=== PATIENT | female | born 1990 | race Caucasian/White ===

== ENCOUNTER 2017-02-28 09:01 | Emergency (ER) | payer OTHER ==
[~2017-02-28] VITALS: Ht 182.9 cm; Wt 100.0 kg
[2017-02-28 09:02] VITALS: BP 134/80
[2017-02-28] MEDS ORDERED: PERCOCET 5MG/325MG TAB PO ONE (09:45)
[2017-02-28] MEDS ORDERED: BACLOFEN 10 MG TAB PO ONE (09:45)
[2017-02-28] MEDS ORDERED: BACL10TA2 PO (10:30)
[2017-02-28] MEDS ORDERED: predniSONE 20 MG TAB PO ONE (10:30)
[2017-02-28] MEDS ORDERED: PRED20TA PO (10:30)
[2017-02-28] MEDS ORDERED: PERC5TAB12 PO (10:30)
== END 2017-02-28 10:41 | disposition home or self-care (01) ==
LOC: M ED 09:01
DX: S33.5XXA Sprain of ligaments of lumbar spine, initial encounter (principal); X50.0XXA Overexertion from strenuous movement or load, initial encounter; Y92.89 Other specified places as the place of occurrence of the external cause; Y93.89 Activity, other specified; Y99.9 Unspecified external cause status

== ENCOUNTER 2017-03-03 07:41 | Emergency (ER) | payer OTHER ==
[~2017-03-03] VITALS: Ht 182.9 cm; Wt 100.0 kg
[~2017-03-03 07:41] MED LIST: BACL10TA2 PO; PERC5TAB12 PO; PRED20TA PO
[2017-03-03] MEDS ORDERED: SUDA30TA8 PO (09:00)
[2017-03-03 09:11] VITALS: BP 124/70
== END 2017-03-03 09:15 | disposition home or self-care (01) ==
LOC: M ED 07:41
DX: J20.9 Acute bronchitis, unspecified (principal); B34.9 Viral infection, unspecified; M54.5 Low back pain; Z88.8 Allergy status to other drugs, medicaments and biological substances; Z79.899 Other long term (current) drug therapy; Z79.52 Long term (current) use of systemic steroids

== ENCOUNTER 2017-06-15 08:41 | Emergency (ER) | payer OTHER ==
[2017-06-15] MEDS: NS 1,000 ML IV (10:45)
[2017-06-15 10:49] LABS: BASO % 0.4 % (0.0-1.0); EOS % 1.5 % (0.0-3.0); HEMATOCRIT 31.1 % (36.0-47.0); HEMOGLOBIN 9.3 g/dl (12.0-16.0); IMMATURE GRANULOCYTE % 0.4 % (0-3.0); LYMPH # 1.2 10^3/uL (1.5-6.5); LYMPH % 42.4 % (24.0-44.0); MEAN CORPUSCULAR HEMOGLOBIN 21.8 pg (27.0-33.0); MEAN CORPUSCULAR HGB CONC 29.9 g/dl (32.0-36.5); MONO # 0.2 10^3/uL (0.0-0.8); NEUTROPHILS # 1.3 10^3/uL (1.8-7.7); NEUTROPHILS % 48.3 % (36.0-66.0); PLATELET COUNT, AUTOMATED 320 10^3/uL (150-450); RED BLOOD COUNT 4.26 10^6/uL (4.00-5.40); RED CELL DISTRIBUTION WIDTH 17.2 % (11.5-14.5); WHITE BLOOD COUNT 2.7 10^3/uL (4.0-10.0)
[2017-06-15] MEDS: METOCLOPRAMIDE INJ 10MG/2ML VIAL (J2765) IV (10:59)
[2017-06-15] MEDS: NORCO, ANEXSIA 5/325MG TABLET (HYDROcodone/ACETAMINOPHEN) PO (11:52)
[2017-06-15 12:12] LABS: ALBUMIN 3.7 GM/DL (3.2-5.2); ALBUMIN/GLOBULIN RATIO 0.73 (1.00-1.93); ALKALINE PHOSPHATASE 72 U/L (45-117); ALT/SGPT 26 U/L (12-78); ANION GAP 6 MEQ/L (8-16); AST/SGOT 18 U/L (7-37); BILIRUBIN,DIRECT < 0.1 MG/DL (0.0-0.2); BILIRUBIN,TOTAL 0.3 MG/DL (0.2-1.0); BLOOD UREA NITROGEN 7 MG/DL (7-18); C REACTIVE PROTEIN QUANTITATIV < 0.30 MG/DL (0.00-0.30); CALCIUM LEVEL 8.4 MG/DL (8.5-10.1); CARBON DIOXIDE LEVEL 25 MEQ/L (21-32); CHLORIDE LEVEL 110 MEQ/L (98-107); CK-MB VALUE MASS < 1.0 NG/ML (<3.6); CPK CREATINE PHOSPHOKINASE 76 U/L (26-192); CREATININE FOR GFR 0.66 MG/DL (0.55-1.30); GLOMERULAR FILTRATION RATE > 60.0 (>60); GLUCOSE, FASTING 82 MG/DL (70-100); LIPASE 92 U/L (73-393); MAGNESIUM LEVEL 2.2 MG/DL (1.8-2.4); MB/CK RELATIVE INDEX 1.31 (< OR =4); NT-PRO BNP 27 PG/ML (<125); SODIUM LEVEL 141 MEQ/L (136-145); TOTAL PROTEIN 8.8 GM/DL (6.4-8.2); TROPONIN I < 0.02 NG/ML (< 0.10)
[2017-06-15 12:22] LABS: INR 1.02; PARTIAL THROMBOPLASTIN TIME 29.6 SECONDS (26.8-37.9); PROTHROMBIN TIME 13.5 SECONDS (12.4-14.5)
[2017-06-15 12:25] LABS: D-DIMER QUANT 2234.6 ng/ml (<500)
[2017-06-15] MEDS: PROMETHAZINE INJ 25 MG/ML VIAL (J2550) IV (13:33)
[2017-06-15] MEDS ORDERED: ISOVUE-370 76% 100ML VIAL (Q9967) As Ordered (13:46)
== END 2017-06-15 15:23 | disposition home or self-care (01) ==
LOC: M ED 08:41
DX: R00.2 Palpitations (principal); D64.9 Anemia, unspecified; R91.8 Other nonspecific abnormal finding of lung field; Z86.69 Personal history of other diseases of the nervous system and sense organs; Z88.8 Allergy status to other drugs, medicaments and biological substances; Z82.49 Family history of ischemic heart disease and other diseases of the circulatory system
CPT/HCPCS: Q9967

== ENCOUNTER 2017-09-07 20:39 | Emergency (ER) | payer OTHER | END 2017-09-08 00:25 | disposition home or self-care (01) | LOC: M ED 09-08 00:25 | DX: M25.512 Pain in left shoulder (principal); F41.9 Anxiety disorder, unspecified; Z88.8 Allergy status to other drugs, medicaments and biological substances; Z79.899 Other long term (current) drug therapy | CPT/HCPCS: 72070 ==

== ENCOUNTER 2017-12-01 07:49 | Emergency (ER) | payer OTHER ==
[2017-12-01] MEDS: KETOROLAC 30 MG/ML VIAL (J1885) IV (09:24)
[2017-12-01] MEDS: METOCLOPRAMIDE INJ 10MG/2ML VIAL (J2765) IV (09:24)
[2017-12-01 10:44] LABS: HEMATOCRIT 27.8 % (36.0-47.0); HEMOGLOBIN 8.6 g/dl (12.0-15.5); MEAN CORPUSCULAR HEMOGLOBIN 22.1 pg (27.0-33.0); MEAN CORPUSCULAR HGB CONC 30.9 g/dl (32.0-36.5); MEAN CORPUSCULAR VOLUME 71.3 fl (80.0-96.0); PLATELET COUNT, AUTOMATED 287 10^3/uL (150-450); RED CELL DISTRIBUTION WIDTH 18.3 % (11.5-14.5); WHITE BLOOD COUNT 4.4 10^3/uL (4.0-10.0)
[2017-12-01 11:01] LABS: CONTROL LINE HCG INT CTR LINE PRESENT; HCG, SERUM QUALITATIVE NEGATIVE (NEGATIVE)
[2017-12-01 11:07] LABS: ANION GAP 5 MEQ/L (8-16); BLOOD UREA NITROGEN 9 MG/DL (7-18); CALCIUM LEVEL 8.3 MG/DL (8.5-10.1); CARBON DIOXIDE LEVEL 26 MEQ/L (21-32); CHLORIDE LEVEL 109 MEQ/L (98-107); CREATININE FOR GFR 0.69 MG/DL (0.55-1.30); GLOMERULAR FILTRATION RATE > 60.0 (>60); GLUCOSE, FASTING 76 MG/DL (70-100); POTASSIUM SERUM 3.7 MEQ/L (3.5-5.1); SODIUM LEVEL 140 MEQ/L (136-145)
== END 2017-12-01 11:45 | disposition home or self-care (01) ==
LOC: M ED 07:49
DX: R11.2 Nausea with vomiting, unspecified (principal); G43.909 Migraine, unspecified, not intractable, without status migrainosus; D50.9 Iron deficiency anemia, unspecified; G44.209 Tension-type headache, unspecified, not intractable; F41.9 Anxiety disorder, unspecified; F32.9 Major depressive disorder, single episode, unspecified; Z79.899 Other long term (current) drug therapy; Z88.8 Allergy status to other drugs, medicaments and biological substances
CPT/HCPCS: J1885

== ENCOUNTER 2017-12-20 10:37 | Emergency (ER) | payer OTHER ==
[2017-12-20 11:38] LABS: HEMATOCRIT 33.7 % (36.0-47.0); HEMOGLOBIN 10.2 g/dl (12.0-15.5); MEAN CORPUSCULAR HEMOGLOBIN 21.9 pg (27.0-33.0); MEAN CORPUSCULAR HGB CONC 30.3 g/dl (32.0-36.5); MEAN CORPUSCULAR VOLUME 72.5 fl (80.0-96.0); PLATELET COUNT, AUTOMATED 289 10^3/uL (150-450); RED BLOOD COUNT 4.65 10^6/uL (4.00-5.40); RED CELL DISTRIBUTION WIDTH 17.5 % (11.5-14.5); WHITE BLOOD COUNT 2.9 10^3/uL (4.0-10.0)
[2017-12-20] MEDS: NS 1,000 ML IV (11:41)
[2017-12-20] MEDS: KETOROLAC 30 MG/ML VIAL (J1885) IV (11:57)
[2017-12-20] MEDS: METOCLOPRAMIDE INJ 10MG/2ML VIAL (J2765) IV (11:57)
[2017-12-20 12:07] LABS: ALBUMIN 4.2 GM/DL (3.2-5.2); ALBUMIN/GLOBULIN RATIO 0.79 (1.00-1.93); ALKALINE PHOSPHATASE 81 U/L (45-117); ALT/SGPT 29 U/L (12-78); ANION GAP 7 MEQ/L (8-16); AST/SGOT 19 U/L (7-37); BILIRUBIN,DIRECT < 0.1 MG/DL (0.0-0.2); BILIRUBIN,TOTAL 0.2 MG/DL (0.2-1.0); BLOOD UREA NITROGEN 6 MG/DL (7-18); CALCIUM LEVEL 8.6 MG/DL (8.5-10.1); CARBON DIOXIDE LEVEL 26 MEQ/L (21-32); CHLORIDE LEVEL 109 MEQ/L (98-107); GLOMERULAR FILTRATION RATE > 60.0 (>60); GLUCOSE, FASTING 84 MG/DL (70-100); POTASSIUM SERUM 4.2 MEQ/L (3.5-5.1); SODIUM LEVEL 142 MEQ/L (136-145); TOTAL PROTEIN 9.5 GM/DL (6.4-8.2)
[2017-12-20 12:12] LABS: INFLUENZA A AMPLIFICATION NEGATIVE (NEGATIVE); INFLUENZA B AMPLIFICATION NEGATIVE (NEGATIVE); RSV AMPLIFICATION NEGATIVE (NEGATIVE)
[2017-12-20 12:15] LABS: KETONE, URINE AUTO RFX NEGATIVE (NEGATIVE); NITRITE, URINE AUTO RFX NEGATIVE (NEGATIVE); RBC, URINE AUTO RFX 6 /HPF (0-3); SPECIFIC GRAVITY UR AUTO RFX 1.002 (1.002-1.035); SQUAM EPITHELIAL CELL UR AURFX 16 /HPF (0-6)
[2017-12-20 12:16] LABS: LEUKOCYTE ESTERASE UR AUTO RFX 3+ (NEGATIVE); WBC, URINE AUTO RFX 13 /HPF (0-3)
== END 2017-12-20 13:21 | disposition home or self-care (01) ==
LOC: M ED 10:37
DX: R51 Headache (principal); N39.0 Urinary tract infection, site not specified; M54.9 Dorsalgia, unspecified; F41.9 Anxiety disorder, unspecified; F32.9 Major depressive disorder, single episode, unspecified; Z72.0 Tobacco use; Z79.899 Other long term (current) drug therapy; Z88.8 Allergy status to other drugs, medicaments and biological substances
CPT/HCPCS: J1885

== ENCOUNTER 2018-01-24 10:15 | Emergency (ER) | payer OTHER ==
[2018-01-24 11:58] LABS: BASO % 0.6 % (0.0-1.0); EOS # 0.1 10^3/uL (0.0-0.50); EOS % 1.5 % (0.0-3.0); HEMOGLOBIN 9.4 g/dl (12.0-15.5); IMMATURE GRANULOCYTE % 0.3 % (0-3.0); LYMPH # 1.5 10^3/uL (1.5-6.5); LYMPH % 42.4 % (24.0-44.0); MEAN CORPUSCULAR HEMOGLOBIN 21.2 pg (27.0-33.0); MEAN CORPUSCULAR HGB CONC 29.4 g/dl (32.0-36.5); MEAN CORPUSCULAR VOLUME 72.2 fl (80.0-96.0); MONO # 0.3 10^3/uL (0.0-0.8); MONO % 8.4 % (0.0-5.0); NEUTROPHILS # 1.6 10^3/uL (1.8-7.7); NEUTROPHILS % 46.8 % (36.0-66.0); PLATELET COUNT, AUTOMATED 299 10^3/uL (150-450); RED BLOOD COUNT 4.43 10^6/uL (4.00-5.40); RED CELL DISTRIBUTION WIDTH 17.1 % (11.5-14.5); WHITE BLOOD COUNT 3.4 10^3/uL (4.0-10.0)
[2018-01-24 12:14] LABS: KETONE, URINE AUTO RFX NEGATIVE (NEGATIVE); MUCUS, URINE RFX SMALL (NEGATIVE); NITRITE, URINE AUTO RFX NEGATIVE (NEGATIVE); RBC, URINE AUTO RFX 3 /HPF (0-3); SQUAM EPITHELIAL CELL UR AURFX 1 /HPF (0-6); WBC, URINE AUTO RFX 7 /HPF (0-3)
[2018-01-24 12:16] LABS: LEUKOCYTE ESTERASE UR AUTO RFX 1+ (NEGATIVE)
[2018-01-24] MEDS: MORPHINE 2 MG/ML 1ML SYRINGE (J2270) IV (12:53)
[2018-01-24 13:20] LABS: ANION GAP 5 MEQ/L (8-16); BLOOD UREA NITROGEN 6 MG/DL (7-18); CALCIUM LEVEL 8.8 MG/DL (8.5-10.1); CARBON DIOXIDE LEVEL 27 MEQ/L (21-32); CHLORIDE LEVEL 108 MEQ/L (98-107); CREATININE FOR GFR 0.77 MG/DL (0.55-1.30); GLOMERULAR FILTRATION RATE > 60.0 (>60); GLUCOSE, FASTING 87 MG/DL (70-100); POTASSIUM SERUM 4.3 MEQ/L (3.5-5.1); SODIUM LEVEL 140 MEQ/L (136-145)
[2018-01-24] MEDS: METOCLOPRAMIDE INJ 10MG/2ML VIAL (J2765) IV (13:37)
[2018-01-24] MEDS: NS 1,000 ML IV (14:06)
== END 2018-01-24 14:54 | disposition home or self-care (01) ==
LOC: M ED 10:15
DX: N70.11 Chronic salpingitis (principal); D64.9 Anemia, unspecified; F33.9 Major depressive disorder, recurrent, unspecified; F41.9 Anxiety disorder, unspecified; Z79.899 Other long term (current) drug therapy; Z88.8 Allergy status to other drugs, medicaments and biological substances
CPT/HCPCS: J2765

== ENCOUNTER 2018-01-27 16:50 | Emergency (ER) | payer OTHER ==
[2018-01-27 18:06] LABS: HEMATOCRIT 31.5 % (36.0-47.0); HEMOGLOBIN 9.3 g/dl (12.0-15.5); MEAN CORPUSCULAR HEMOGLOBIN 21.2 pg (27.0-33.0); MEAN CORPUSCULAR HGB CONC 29.5 g/dl (32.0-36.5); MEAN CORPUSCULAR VOLUME 71.9 fl (80.0-96.0); PLATELET COUNT, AUTOMATED 311 10^3/uL (150-450); RED BLOOD COUNT 4.38 10^6/uL (4.00-5.40); RED CELL DISTRIBUTION WIDTH 17.2 % (11.5-14.5)
[2018-01-27 18:34] LABS: ANION GAP 2 MEQ/L (8-16); BLOOD UREA NITROGEN 6 MG/DL (7-18); CALCIUM LEVEL 9.1 MG/DL (8.5-10.1); CARBON DIOXIDE LEVEL 29 MEQ/L (21-32); CHLORIDE LEVEL 105 MEQ/L (98-107); CREATININE FOR GFR 0.77 MG/DL (0.55-1.30); GLOMERULAR FILTRATION RATE > 60.0 (>60); GLUCOSE, FASTING 99 MG/DL (70-100); HCG, SERUM QUANTITATIVE < 1.0 MIU/ML; POTASSIUM SERUM 3.7 MEQ/L (3.5-5.1); SODIUM LEVEL 136 MEQ/L (136-145)
[2018-01-27] MEDS ORDERED: ISOVUE-370 76% 100ML VIAL (Q9967) As Ordered (18:46)
[2018-01-27] MEDS: KETOROLAC 30 MG/ML VIAL (J1885) IV (18:51)
[2018-01-27] MEDS: MORPHINE 4 MG/ML 1ML VIAL/SYRINGE (J2270) IV (18:52)
[2018-01-27 19:59] LABS: APPEARANCE, URINE CLEAR (CLEAR); BACTERIA, URINE AUTO NEGATIVE (NEGATIVE); BILIRUBIN, URINE AUTO NEGATIVE (NEGATIVE); BLOOD, URINE BLOOD NEGATIVE (NEGATIVE); COLOR, URINE STRAW (YELLOW); GLUCOSE, URINE (UA) AUTO NEGATIVE (NEGATIVE); KETONE, URINE AUTO NEGATIVE (NEGATIVE); LEUKOCYTE ESTERASE, URINE AUTO NEGATIVE (NEGATIVE); NITRITE, URINE AUTO NEGATIVE (NEGATIVE); PROTEIN, URINE AUTO NEGATIVE (NEGATIVE); RBC, URINE AUTO 2 /HPF (0-3); SQUAMOUS EPITHELIAL CELL UR AU 1 /HPF (0-6); UROBILINOGEN, URINE AUTO 0.2 mg/dL (0.0-2.0); WBC, URINE AUTO 1 /HPF (0-3)
[2018-01-27 20:29] LABS: SPECIFIC GRAVITY URINE AUTO >1.060 (1.002-1.035)
== END 2018-01-27 20:07 | disposition home or self-care (01) ==
LOC: M ED 16:50
DX: N70.11 Chronic salpingitis (principal); N83.201 Unspecified ovarian cyst, right side; N83.202 Unspecified ovarian cyst, left side; R11.2 Nausea with vomiting, unspecified; D64.9 Anemia, unspecified; M54.9 Dorsalgia, unspecified; F41.9 Anxiety disorder, unspecified; F32.9 Major depressive disorder, single episode, unspecified; Z98.51 Tubal ligation status; Z88.8 Allergy status to other drugs, medicaments and biological substances; Z79.899 Other long term (current) drug therapy
CPT/HCPCS: J2270

== ENCOUNTER 2018-02-01 16:23 | Emergency (ER) | payer OTHER ==
[2018-02-01] MEDS: NORCO, ANEXSIA 5/325MG TABLET (HYDROcodone/ACETAMINOPHEN) PO (18:56)
[2018-02-01 19:11] LABS: BASO % 0.5 % (0.0-1.0); EOS # 0.1 10^3/uL (0.0-0.50); EOS % 1.5 % (0.0-3.0); IMMATURE GRANULOCYTE % 0.3 % (0-3.0); LYMPH # 1.7 10^3/uL (1.5-6.5); LYMPH % 42.6 % (24.0-44.0); MEAN CORPUSCULAR HEMOGLOBIN 21.6 pg (27.0-33.0); MEAN CORPUSCULAR VOLUME 71.9 fl (80.0-96.0); MONO # 0.3 10^3/uL (0.0-0.8); MONO % 7.8 % (0.0-5.0); NEUTROPHILS # 1.9 10^3/uL (1.8-7.7); NEUTROPHILS % 47.3 % (36.0-66.0); PLATELET COUNT, AUTOMATED 248 10^3/uL (150-450); RED BLOOD COUNT 4.17 10^6/uL (4.00-5.40); RED CELL DISTRIBUTION WIDTH 17.4 % (11.5-14.5)
[2018-02-01 19:24] LABS: ANION GAP 3 MEQ/L (8-16); BLOOD UREA NITROGEN 7 MG/DL (7-18); CALCIUM LEVEL 8.5 MG/DL (8.5-10.1); CARBON DIOXIDE LEVEL 28 MEQ/L (21-32); CHLORIDE LEVEL 107 MEQ/L (98-107); CREATININE FOR GFR 0.72 MG/DL (0.55-1.30); GLOMERULAR FILTRATION RATE > 60.0 (>60); GLUCOSE, FASTING 74 MG/DL (70-100); POTASSIUM SERUM 3.8 MEQ/L (3.5-5.1); SODIUM LEVEL 138 MEQ/L (136-145)
[2018-02-01] MEDS: OXYCODONE/APAP 5MG/325MG(BULK FOR ED) 1 TABLET PO (21:28)
== END 2018-02-01 21:34 | disposition home or self-care (01) ==
LOC: M ED 16:23
DX: N83.201 Unspecified ovarian cyst, right side (principal); N70.11 Chronic salpingitis; R10.31 Right lower quadrant pain; N89.8 Other specified noninflammatory disorders of vagina; D64.9 Anemia, unspecified; Z88.8 Allergy status to other drugs, medicaments and biological substances; Z79.899 Other long term (current) drug therapy
CPT/HCPCS: 76856

== ENCOUNTER 2018-03-01 09:28 | Day surgery (SDC) | payer OTHER ==
[2018-03-01 10:16] LABS: HEMATOCRIT 28.9 % (36.0-47.0); HEMOGLOBIN 8.5 g/dl (12.0-15.5); MEAN CORPUSCULAR HGB CONC 29.4 g/dl (32.0-36.5); MEAN CORPUSCULAR VOLUME 71.5 fl (80.0-96.0); PLATELET COUNT, AUTOMATED 251 10^3/uL (150-450); RED BLOOD COUNT 4.04 10^6/uL (4.00-5.40); RED CELL DISTRIBUTION WIDTH 17.9 % (11.5-14.5)
[2018-03-01] MEDS: LR 1,000 ML IV (10:45)
[2018-03-01 10:49] LABS: APPEARANCE, URINE HAZY (CLEAR); BACTERIA, URINE AUTO NEGATIVE (NEGATIVE); BILIRUBIN, URINE AUTO NEGATIVE (NEGATIVE); BLOOD, URINE BLOOD NEGATIVE (NEGATIVE); COLOR, URINE YELLOW (YELLOW); GLUCOSE, URINE (UA) AUTO NEGATIVE (NEGATIVE); KETONE, URINE AUTO NEGATIVE (NEGATIVE); LEUKOCYTE ESTERASE, URINE AUTO 1+ (NEGATIVE); NITRITE, URINE AUTO NEGATIVE (NEGATIVE); PROTEIN, URINE AUTO NEGATIVE (NEGATIVE); RBC, URINE AUTO 2 /HPF (0-3); SPECIFIC GRAVITY URINE AUTO 1.012 (1.002-1.035); SQUAMOUS EPITHELIAL CELL UR AU 3 /HPF (0-6); UROBILINOGEN, URINE AUTO 0.2 mg/dL (0.0-2.0); WBC, URINE AUTO 2 /HPF (0-3)
[2018-03-01 10:51] LABS: CONTROL LINE HCG INT CTR LINE PRESENT; HCG, SERUM QUALITATIVE NEGATIVE (NEGATIVE)
[2018-03-01] MEDS ORDERED: LIDOCAINE 2% INJ 100 MG/5 ML SDV (FOR ANES.) As Ordered (13:14)
[2018-03-01] MEDS ORDERED: PROPOFOL 200 MG/20 ML VIAL As Ordered (13:14)
[2018-03-01] MEDS ORDERED: fentaNYL 250 MCG/5 ML INJECTION (J3010) As Ordered (13:14)
[2018-03-01] MEDS ORDERED: ROCURONIUM BROMIDE 50 MG/5 ML VIAL As Ordered (13:14)
[2018-03-01] MEDS ORDERED: MIDAZOLAM INJ 2 MG/2 ML VIAL (J2250) As Ordered (13:15)
[2018-03-01] MEDS: SCOPOLAMINE 1MG TRANSDERMAL PATCH As Ordered (13:39)
[2018-03-01] MEDS: BUPIVACAINE HCL 0.5% 30 ML VIAL As Ordered (14:00)
[2018-03-01] MEDS ORDERED: METOCLOPRAMIDE INJ 10MG/2ML VIAL (J2765) As Ordered (14:10)
[2018-03-01] MEDS ORDERED: GLYCOPYRROLATE INJ 0.2 MG/ML 2 ML VIAL As Ordered (14:10)
[2018-03-01] MEDS ORDERED: NEOSTIGMINE 10 MG/10 ML VIAL (J2710) As Ordered (14:10)
[2018-03-01] MEDS ORDERED: dexameTHASONE 4 MG/ML 1ML VIAL (J1100) As Ordered ×2 (14:10→14:11)
[2018-03-01] MEDS ORDERED: KETOROLAC 60 MG/2 ML VIAL (J1885) As Ordered (14:10)
[2018-03-01] MEDS ORDERED: fentaNYL 100 MCG/2 ML INJECTION (J3010) As Ordered (14:31)
[2018-03-01] MEDS: SILVER NITRATE APPLICATOR As Ordered (14:37)
[2018-03-01] MEDS ORDERED: PERCOCET 5MG/325MG TAB PO (15:15)
[2018-03-01] MEDS ORDERED: IBUPROFEN 800 MG TAB PO (15:15)
[2018-03-01] MEDS ORDERED: LR 1,000 ML IV (15:15)
[2018-03-01] MEDS ORDERED: fentaNYL 100 MCG/2 ML INJECTION (J3010) IV (15:15)
[2018-03-01] MEDS: PERCOCET 5MG/325MG TAB PO (15:46)
== END 2018-03-01 17:35 | disposition home or self-care (01) ==
LOC: M SDC 09:28
DX: N70.11 Chronic salpingitis (principal); N73.9 Female pelvic inflammatory disease, unspecified; N83.11 Corpus luteum cyst of right ovary; D64.9 Anemia, unspecified; F41.9 Anxiety disorder, unspecified; F32.9 Major depressive disorder, single episode, unspecified; Z88.8 Allergy status to other drugs, medicaments and biological substances; Z79.899 Other long term (current) drug therapy; Z98.51 Tubal ligation status
CPT/HCPCS: 58661

== ENCOUNTER 2018-07-05 17:46 | Emergency (ER) | payer OTHER ==
[~2018-07-05] VITALS: Ht 182.9 cm; Wt 96.8 kg
[~2018-07-05 17:46] MED LIST changes: +ACET-716 PO; +BACT800T5 PO; +CLON0.5T8 PO; +DICY20TA; +FERR325T3 PO; +KETO10TAB PO; +REGL10TA6 PO; +SERT-138 PO; +SUDA30TA8 PO; +TRAZ-160 PO
[2018-07-05 19:20] LABS: BASO % 0.4 % (0.0-1.0); EOS % 0.9 % (0.0-3.0); HEMATOCRIT 30.8 % (36.0-47.0); HEMOGLOBIN 9.3 g/dl (12.0-15.5); LYMPH # 1.7 10^3/uL (1.5-6.5); LYMPH % 37.4 % (24.0-44.0); MEAN CORPUSCULAR HEMOGLOBIN 20.7 pg (27.0-33.0); MEAN CORPUSCULAR HGB CONC 30.2 g/dl (32.0-36.5); MEAN CORPUSCULAR VOLUME 68.6 fl (80.0-96.0); MONO # 0.3 10^3/uL (0.0-0.8); MONO % 5.8 % (0.0-5.0); NEUTROPHILS # 2.6 10^3/uL (1.8-7.7); NEUTROPHILS % 55.3 % (36.0-66.0); PLATELET COUNT, AUTOMATED 301 10^3/uL (150-450); RED BLOOD COUNT 4.49 10^6/uL (4.00-5.40); WHITE BLOOD COUNT 4.6 10^3/uL (4.0-10.0)
[2018-07-05 19:45] LABS: BLOOD UREA NITROGEN 8 MG/DL (7-18); CALCIUM LEVEL 8.2 MG/DL (8.5-10.1); CARBON DIOXIDE LEVEL 23 MEQ/L (21-32); CHLORIDE LEVEL 111 MEQ/L (98-107); CREATININE FOR GFR 0.64 MG/DL (0.55-1.30); GLOMERULAR FILTRATION RATE > 60.0 (>60); GLUCOSE, FASTING 88 MG/DL (70-100); POTASSIUM SERUM 3.8 MEQ/L (3.5-5.1); SODIUM LEVEL 139 MEQ/L (136-145)
[2018-07-05] MEDS ORDERED: ONDANSETRON 4 MG ORAL DISINTEGRATING TAB (Q0162 PER 1MG) PO ONE (20:15)
[2018-07-05 20:26] LABS: ABG BASE EXCESS -2.6 (-2.0-2.0); ABG HCO3 20.8 MEQ/L (22.0-26.0); ABG O2 SATURATION 98.4 % (95.0-99.0); ABG PARTIAL PRESSURE CO2 30.9 mmHg (35.0-45.0); ABG PARTIAL PRESSURE O2 105.7 mmHg (75.0-100.0); ABG STANDARD HCO3 22.3 MEQ/L (22.0-26.0); ABG TOTAL CO2 21.7 MEQ/L (22.0-29.0); ABG pH (ARTERIAL) 7.445 UNITS (7.350-7.450)
[2018-07-05] MEDS ORDERED: METOCLOPRAMIDE INJ 10MG/2ML VIAL (J2765) As Ordered ONE (21:09)
--- NOTE | 2018-07-05 21:46 | ECGEPIP ---
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
[2018-07-05 21:50] VITALS: BP 116/78
--- NOTE | 2018-07-06 07:58 | REP ---
Portable chest, 07:59 p.m., single AP upright view: There are no comparisons. The lung garner are clear. The cardiac size is normal. The aisha, mediastinum, and skeletal structures are unremarkable. Impression: Negative portable chest. Electronically Signed by Hunter Anton MD 07/06/2018 07:50 A
== END 2018-07-05 21:51 | disposition home or self-care (01) ==
LOC: M ED 17:46 → EDBD 17:46 → M ED 21:51
DX: F41.1 Generalized anxiety disorder (principal); R07.89 Other chest pain; D64.9 Anemia, unspecified; R06.02 Shortness of breath; F17.210 Nicotine dependence, cigarettes, uncomplicated; Z88.8 Allergy status to other drugs, medicaments and biological substances; Z79.899 Other long term (current) drug therapy

== ENCOUNTER 2018-07-25 16:27 | Emergency (ER) | payer OTHER ==
[~2018-07-25] VITALS: Ht 182.9 cm; Wt 95.0 kg
[2018-07-25 16:59] LABS: BASO % 0.2 % (0.0-1.0); EOS % 0.1 % (0.0-3.0); HEMATOCRIT 28.1 % (36.0-47.0); HEMOGLOBIN 8.6 g/dl (12.0-15.5); LYMPH # 1.4 10^3/uL (1.5-6.5); LYMPH % 15.9 % (24.0-44.0); MEAN CORPUSCULAR HEMOGLOBIN 20.9 pg (27.0-33.0); MEAN CORPUSCULAR HGB CONC 30.6 g/dl (32.0-36.5); MEAN CORPUSCULAR VOLUME 68.2 fl (80.0-96.0); MONO # 0.5 10^3/uL (0.0-0.8); MONO % 5.6 % (0.0-5.0); NEUTROPHILS % 77.9 % (36.0-66.0); PLATELET COUNT, AUTOMATED 277 10^3/uL (150-450); RED BLOOD COUNT 4.12 10^6/uL (4.00-5.40); WHITE BLOOD COUNT 9.1 10^3/uL (4.0-10.0)
[2018-07-25] MEDS ORDERED: MORPHINE 4 MG/ML 1ML VIAL/SYRINGE (J2270) IV ONE ×2 (17:00→19:15)
[2018-07-25] MEDS ORDERED: ACETAMINOPHEN TAB 650MG DOSE (2X325MG) PO ONE (17:00)
[2018-07-25] MEDS ORDERED: NS 1,000 ML IV ONE (17:00)
[2018-07-25 17:21] LABS: ALBUMIN 3.6 GM/DL (3.2-5.2); ALT/SGPT 22 U/L (12-78); BILIRUBIN,DIRECT < 0.1 MG/DL (0.0-0.2); BILIRUBIN,TOTAL 0.3 MG/DL (0.2-1.0); BLOOD UREA NITROGEN 6 MG/DL (7-18); CALCIUM LEVEL 8.1 MG/DL (8.5-10.1); CARBON DIOXIDE LEVEL 24 MEQ/L (21-32); CHLORIDE LEVEL 106 MEQ/L (98-107); GLOMERULAR FILTRATION RATE > 60.0 (>60); GLUCOSE, FASTING 103 MG/DL (70-100); LIPASE 80 U/L (73-393); POTASSIUM SERUM 3.8 MEQ/L (3.5-5.1); SODIUM LEVEL 137 MEQ/L (136-145); TOTAL PROTEIN 8.9 GM/DL (6.4-8.2)
[2018-07-25 17:29] LABS: HCG, SERUM QUALITATIVE NEGATIVE (NEGATIVE)
[2018-07-25] MEDS: GASTROGRAFIN SOLUTION 30ML PO SCH ×2 (18:02→18:38)
[2018-07-25] MEDS ORDERED: ISOVUE-370 76% 100ML VIAL (Q9967) As Ordered ONE (19:17)
[2018-07-25] MEDS ORDERED: diphenhydrAMINE INJ 50MG/ML VIAL (J1200) IV STA (20:50)
[2018-07-25] MEDS ORDERED: METOCLOPRAMIDE INJ 10MG/2ML VIAL (J2765) IV ONE (21:00)
--- NOTE | 2018-07-25 21:26 | REPVR ---
EXAM: CT Abdomen and Pelvis With Contrast EXAM DATE/TIME: 07/25/18 (8:04pm) CLINICAL HISTORY: 28 year old female with lower abdominal pain and fever TECHNIQUE: Imaging protocol: Axial computed tomography images of the abdomen and pelvis with intravenous contrast. Coronal and sagittal reformatted images were created and reviewed. Radiation optimization: All CT scans at this facility use at least one of these dose optimization techniques: automated exposure control; mA and/or kV adjustment per patient size (includes targeted exams where dose is matched to clinical indication); or iterative reconstruction. Contrast material: Isovue 370 Contrast volume: 100 ml Contrast route: IV COMPARISON: CT ABDOMEN PELVIS of 01/27/18 FINDINGS: ABDOMEN: Liver: Normal. No solid mass. Gallbladder and bile ducts: Normal. No calcified stones. No ductal dilatation. Pancreas: Normal. No ductal dilatation. Spleen: Splenomegaly (unchanged). Adrenals: Normal. No mass. Kidneys and ureters: Normal. No hydronephrosis. Stomach and bowel: Normal. No bowel obstruction. No mucosal thickening. Appendix: No evidence of appendicitis. PELVIS: Bladder: Unremarkable as visualized. Reproductive: Small amount of CDS and lower pelvic fluid. Small left adnexal cyst (1.5 cm size). Ovoid right adnexal soft tissue structure (4.5 x 1.7 x 2.8 cm size) --- perhaps an enlarged right ovary, eg. ABDOMEN and PELVIS: Intraperitoneal space: Normal. No free air. No significant fluid collection. Bones/joints: No acute fracture nor dislocation. Soft tissues: Unremarkable. Vasculature: Normal. No abdominal aortic aneurysm. Lymph nodes: Normal. No enlarged lymph nodes. IMPRESSION: No acute bowel pathology. No hydronephrosis. Small amount of nonspecific CDS and lower pelvic fluid. Probable left ovarian cyst (1.5 cm size). Prominent right ovary (most likely). Electronically signed by: Zoë Vazquez On 07/25/2018 21:26:20 PM
[2018-07-25] MEDS ORDERED: NORCO 5/325MG TABLET (BULK FOR ED) PO ONE (22:15)
[2018-07-25 22:29] VITALS: BP 94/52
== END 2018-07-25 22:34 | disposition home or self-care (01) ==
LOC: M ED 16:27
DX: N83.202 Unspecified ovarian cyst, left side (principal); D64.9 Anemia, unspecified; F41.9 Anxiety disorder, unspecified; Z79.899 Other long term (current) drug therapy; Z88.8 Allergy status to other drugs, medicaments and biological substances
CPT/HCPCS: 36415; 74177; 80048; 80076; 81001; 83690; 84703; 85025; 87086; 96374; 96375; 96376; 99284; J1200; J2270; J2765; Q9963; Q9967

== ENCOUNTER 2020-05-25 20:26 | Emergency (ER) | payer OTHER ==
[~2020-05-25] VITALS: Ht 182.9 cm; Wt 90.8 kg
[~2020-05-25 20:26] MED LIST changes: +CLON0.5T2 PO; -CLON0.5T8 PO; -DICY20TA; +DICY20TA3; -TRAZ-160 PO; +TRAZ-252 PO
[2020-05-25 22:19] VITALS: BP 131/77
== END 2020-05-25 22:31 | disposition home or self-care (01) ==
LOC: M ED 20:26
DX: R51.9 Headache, unspecified (principal); R19.7 Diarrhea, unspecified; Z20.822 Contact with and (suspected) exposure to COVID-19; F33.9 Major depressive disorder, recurrent, unspecified; F41.9 Anxiety disorder, unspecified; Z79.899 Other long term (current) drug therapy; Z88.8 Allergy status to other drugs, medicaments and biological substances; F17.210 Nicotine dependence, cigarettes, uncomplicated
CPT/HCPCS: 99283; U0003

== ENCOUNTER 2020-09-01 12:39 | Emergency (ER) | payer OTHER ==
[~2020-09-01] VITALS: Ht 182.9 cm; Wt 90.3 kg
[2020-09-01] MEDS ORDERED: predniSONE 20 MG TAB PO ONE (13:55)
[2020-09-01] MEDS ORDERED: diazePAM 10MG/2ML SYRINGE (J3360 PER 5MG) IM ONE (13:55)
[2020-09-01] MEDS ORDERED: MORPHINE 10 MG/ML 1ML VIAL (J2270) IM ONE (14:55)
[2020-09-01] MEDS ORDERED: ONDANSETRON 4 MG ORAL DISINTEGRATING TAB PO ONE (15:50)
[2020-09-01] MEDS ORDERED: PRED10TA2 PO (16:28)
[2020-09-01] MEDS ORDERED: METH-1164 PO (16:28)
[2020-09-01 16:41] VITALS: BP 137/80
== END 2020-09-01 16:41 | disposition home or self-care (01) ==
LOC: M ED 12:39
DX: S39.012A Strain of muscle, fascia and tendon of lower back, initial encounter (principal); X50.1XXA Overexertion from prolonged static or awkward postures, initial encounter; Y92.9 Unspecified place or not applicable; Y93.9 Activity, unspecified; Y99.9 Unspecified external cause status; F17.200 Nicotine dependence, unspecified, uncomplicated; Z88.8 Allergy status to other drugs, medicaments and biological substances
CPT/HCPCS: 96372; 99283; J2270; J3360; J7512

== ENCOUNTER 2020-11-14 13:47 | Emergency (ER) | payer OTHER ==
[~2020-11-14] VITALS: Ht 182.9 cm; Wt 90.6 kg
[~2020-11-14 13:47] MED LIST changes: +METH-1164 PO; +PRED10TA2 PO
[2020-11-14 13:50] VITALS: BP_SYST 133
[2020-11-14] MEDS ORDERED: ZITH500T PO (13:57)
[2020-11-14] MEDS ORDERED: ALBU8.5H (13:57)
== END 2020-11-14 18:20 | disposition left against medical advice (07) ==
LOC: M ED 13:47
DX: Z53.21 Procedure and treatment not carried out due to patient leaving prior to being seen by health care provider (principal)

== ENCOUNTER 2021-03-02 17:52 | Emergency (ER) | payer OTHER ==
[~2021-03-02] VITALS: Ht 182.9 cm; Wt 97.7 kg
[~2021-03-02 17:52] MED LIST changes: +ALBU8.5H; +ZITH500T PO
--- OUTSIDE RECORDS SUMMARY | 2021-03-02 17:58 | CCD ---
Author Author [facility] Organization [facility] Address Unknown Phone Unavailable Care Team Providers Care Counselor Aide Name Role Phone Luz HUFF MD Unavailable Unavailable Luz HUFF MD Unavailable Unavailable Luz HUFF MD Unavailable Unavailable Luz HUFF MD Unavailable Unavailable Luz HUFF MD Unavailable Unavailable Luz HUFF MD Unavailable Unavailable Luz HUFF MD Unavailable Unavailable Luz HUFF MD Unavailable Unavailable Luz HUFF MD Unavailable Unavailable Luz HUFF MD Unavailable Unavailable Luz HUFF MD Unavailable Unavailable Luz HUFF MD Unavailable Unavailable Luz HUFF MD Unavailable Unavailable Luz HUFF MD Unavailable Unavailable Luz HUFF MD Unavailable Unavailable Luz HUFF MD Unavailable Unavailable Luz HUFF MD Unavailable Unavailable Luz HUFF MD Unavailable Unavailable Luz HUFF MD Unavailable Unavailable Luz HUFF MD Unavailable Unavailable Luz HUFF MD Unavailable Unavailable Luz HUFF MD Unavailable Unavailable Luz HUFF MD Unavailable Unavailable Luz HUFF MD Unavailable Unavailable Luz HUFF MD Unavailable Unavailable Luz HUFF MD Unavailable Unavailable Luz HUFF MD Unavailable Unavailable Luz HUFF MD Unavailable Unavailable Luz HUFF MD Unavailable Unavailable Luz HUFF MD Unavailable Unavailable uLz HUFF MD Unavailable Unavailable Luz HUFF MD Unavailable Unavailable Luz HUFF MD Unavailable Unavailable Luz HUFF MD Unavailable Unavailable Luz HUFF MD Unavailable Unavailable Luz HUFF MD Unavailable Unavailable Luz HUFF MD Unavailable Unavailable Luz HUFF MD Unavailable Unavailable Luz HUFF MD Unavailable Unavailable Luz HUFF MD Unavailable Unavailable Maring, David PA Unavailable Unavailable Maring, David PA Unavailable Unavailable Maring, David PA Unavailable Unavailable Maring, David PA Unavailable Unavailable Maring, David PA Unavailable Unavailable Maring, David PA Unavailable Unavailable Maring, David PA Unavailable Unavailable Maring, David PA Unavailable Unavailable Maring, David PA Unavailable Unavailable Maring, David PA Unavailable Unavailable Maring, David PA Unavailable Unavailable Maring, David PA Unavailable Unavailable Maring, David PA Unavailable Unavailable Maring, David PA Unavailable Unavailable Maring, David PA Unavailable Unavailable Maring, David PA Unavailable Unavailable TOD, JUAN JOSE PA Unavailable Unavailable TOD, JUAN JOSE PA Unavailable Unavailable TOD, JUAN JOSE PA Unavailable Unavailable TOD, JUAN JOSE PA Unavailable Unavailable TOD, JUAN JOSE PA Unavailable Unavailable TOD, JUAN JOSE PA Unavailable Unavailable TOD, JUAN JOSE PA Unavailable Unavailable TOD, JUAN JOSE PA Unavailable Unavailable TOD, JUAN JOSE PA Unavailable Unavailable TOD, JUAN JOSE PA Unavailable Unavailable TOD, JUAN JOSE PA Unavailable Unavailable TOD, JUAN JOSE PA Unavailable Unavailable TOD, JUAN JOSE PA Unavailable Unavailable TOD, JUAN JOSE PA Unavailable Unavailable TOD, JUAN JOSE PA Unavailable Unavailable SYMENOW, G CHRISTOPHER PA Unavailable Unavailable SYMENOW, G CHRISTOPHER PA Unavailable Unavailable SYMENOW, G CHRISTOPHER PA Unavailable Unavailable SYMENOW, G CHRISTOPHER PA Unavailable Unavailable SYMENOW, G CHRISTOPHER PA Unavailable Unavailable SYMENOW, G CHRISTOPHER PA Unavailable Unavailable SYMENOW, G CHRISTOPHER PA Unavailable Unavailable SYMENOW, G CHRISTOPHER PA Unavailable Unavailable SYMENOW, G CHRISTOPHER PA Unavailable Unavailable SYMENOW, G CHRISTOPHER PA Unavailable Unavailable SYMENOW, G CHRISTOPHER PA Unavailable Unavailable SYMENOW, G CHRISTOPHER PA Unavailable Unavailable SYMENOW, G CHRISTOPHER PA Unavailable Unavailable SYMENOW, G CHRISTOPHER PA Unavailable Unavailable SYMENOW, G CHRISTOPHER PA Unavailable Unavailable SYMENOW, G CHRISTOPHER PA Unavailable Unavailable Forest ANDREW MD Unavailable Unavailable Forest ANDREW MD Unavailable Unavailable Forest ANDREW MD Unavailable Unavailable KAMRAN, F JUANY Unavailable Unavailable KAMRAN, F JUANY MD Unavailable Unavailable KAMRAN, F JUANY MD Unavailable Unavailable KAMRAN, F JUANY MD Unavailable Unavailable KAMRAN, F JUANY MD Unavailable Unavailable KAMRAN, F JUANY MD Unavailable Unavailable KAMRAN, F JUANY MD Unavailable Unavailable KAMRAN, F JUANY MD Unavailable Unavailable KAMRAN, F JUANY MD Unavailable Unavailable KAMRAN, F JUANY MD Unavailable Unavailable KAMRAN, F JUANY MD Unavailable Unavailable KAMRAN, F JUANY MD Unavailable Unavailable KAMRAN, F JUANY MD Unavailable Unavailable KAMRAN, F JUANY MD Unavailable Unavailable KAMRAN, F JUANY MD Unavailable Unavailable KAMRAN, F JUANY MD Unavailable Unavailable KAMRAN, F JUANY MD Unavailable Unavailable KAMRAN, F JUANY MD Unavailable Unavailable KAMRAN, F JUANY MD Unavailable Unavailable KAMRAN, F JUANY MD Unavailable Unavailable KAMRAN, F JUANY MD Unavailable Unavailable KAMRAN, F JUANY MD Unavailable Unavailable KAMRAN, F JUANY MD Unavailable Unavailable KAMRAN, F JUANY MD Unavailable Unavailable KAMRAN, F JUANY MD Unavailable Unavailable KAMRAN, F JUANY Unavailable Unavailable KAMRAN, F JUANY MD Unavailable Unavailable KAMRAN, F JUANY Unavailable Unavailable Madina DUNCAN MD Unavailable Unavailable Madina DUNCAN MD Unavailable Unavailable Madina DUNCAN MD Unavailable Unavailable Madina DUNCAN MD Unavailable Unavailable Madina DUNCAN MD Unavailable Unavailable Madina DUNCAN MD Unavailable Unavailable Madina DUNCAN MD Unavailable Unavailable Madina DUNCAN MD Unavailable Unavailable Madina DUNCAN MD Unavailable Unavailable Madina DUNCAN MD Unavailable Unavailable Madina DUNCAN MD Unavailable Unavailable Madina DUNCAN MD Unavailable Unavailable Madina DUNCAN MD Unavailable Unavailable Madina DUNCAN MD Unavailable Unavailable Madina DUNCAN MD Unavailable Unavailable Madina DUNCAN MD Unavailable Unavailable Madina DUNCAN MD Unavailable Unavailable Madina DUNCAN MD Unavailable Unavailable Madina DUNCAN MD Unavailable Unavailable Madina DUNCAN MD Unavailable Unavailable Madina DUNCAN MD Unavailable Unavailable Madina DUNCAN MD Unavailable Unavailable Madina DUNCAN MD Unavailable Unavailable Madina DUNCAN MD Unavailable Unavailable Madina DUNCAN MD Unavailable Unavailable Madina DUNCAN MD Unavailable Unavailable Balwinder Gold MD Unavailable Unavailable Balwinder Gold MD Unavailable Unavailable Balwindre Gold MD Unavailable Unavailable Balwinder Gold MD Unavailable Unavailable Balwinder Gold MD Unavailable Unavailable Balwinder Gold MD Unavailable Unavailable Balwinder Gold MD Unavailable Unavailable Balwinder Gold MD Unavailable Unavailable Balwinder Gold MD Unavailable Unavailable Balwinder Gold MD Unavailable Unavailable Balwinder Gold MD Unavailable Unavailable Balwinder Gold MD Unavailable Unavailable Balwinder Gold MD Unavailable Unavailable Balwinder Gold MD Unavailable Unavailable Balwinder Gold MD Unavailable Unavailable Balwinder Gold MD Unavailable Unavailable Balwinder Gold MD Unavailable Unavailable Balwinder Gold MD Unavailable Unavailable Balwinder Gold MD Unavailable Unavailable Balwinder Gold MD Unavailable Unavailable Balwinder Gold MD Unavailable Unavailable Balwinder Gold MD Unavailable Unavailable Balwindre Gold MD Unavailable Unavailable Balwinder Gold MD Unavailable Unavailable Balwinder Gold MD Unavailable Unavailable Tram BURKS MD Unavailable Unavailable Tram BURKS MD Unavailable Unavailable Tram BURKS MD Unavailable Unavailable Tram BURKS MD Unavailable Unavailable Tram BURKS MD Unavailable Unavailable Tram BURKS MD Unavailable Unavailable Tram BURKS MD Unavailable Unavailable Tram BURKS MD Unavailable Unavailable Tram BURKS MD Unavailable Unavailable Tram BURKS MD Unavailable Unavailable Tram BURKS MD Unavailable Unavailable Tram BURKS MD Unavailable Unavailable Tram BURKS MD Unavailable Unavailable Tram BURKS MD Unavailable Unavailable Tram BURKS MD Unavailable Unavailable Tram BURKS MD Unavailable Unavailable Tram BURKS MD Unavailable Unavailable Tram BURKS MD Unavailable Unavailable Tram BURKS MD Unavailable Unavailable Tram BURKS MD Unavailable Unavailable Adriana Alvarez ELECTION WATCHER Unavailable Unavailable Adriana Alvarez ELECTION WATCHER Unavailable Unavailable MapleAdriana corrales ELECTION WATCHER Unavailable Unavailable Antonio, Adriana Shah ELECTION WATCHER Unavailable Unavailable Maple, Adriana Shah ELECTION WATCHER Unavailable Unavailable Antonio, Adriana Shah ELECTION WATCHER Unavailable Unavailable Maple, Adriana Shah ELECTION WATCHER Unavailable Unavailable Maple, Adriana Shah ELECTION WATCHER Unavailable Unavailable Antonio, Adriana Shah ELECTION WATCHER Unavailable Unavailable Antonio, Adriana Shah ELECTION WATCHER Unavailable Unavailable Antonio, Adriana Shah ELECTION WATCHER Unavailable Unavailable Antonio, Adriana Shah ELECTION WATCHER Unavailable Unavailable Maple, Adriana Shah ELECTION WATCHER Unavailable Unavailable Maple, Adriana Shah ELECTION WATCHER Unavailable Unavailable MEDENT_[id number], [id number] Unavailable [phone] MEDENT_4785, [id number] Unavailable [phone] [facility]_4785, [id number] Unavailable [phone] [facility]_4785, [id number] Unavailable [phone] [facility]ENT_4785, [id number] Unavailable [phone] [facility]ENT_4785, [id number] Unavailable [phone] MEDENT_4785, [id number] Unavailable [phone] MEDENT_4785, [id number] Unavailable [phone] MEDENT_4785, [id number] Unavailable [phone] MEDENT_[id number], [id number] Unavailable [phone] MEDENT_4785, [id number] Unavailable [phone] MEDENT_4785, [id number] Unavailable [phone] MEDENT_4785, [id number] Unavailable [phone] MEDENT_4785, [id number] Unavailable [phone] MEDENT_[id number], [id number] Unavailable [phone] MEDENT_[id number], [id number] Unavailable [phone] Madina Cole PA-C Unavailable Unavailable Madina Cole PA-C Unavailable Unavailable Cole, M Christopher PA-C Unavailable Unavailable Cole, M Christopher PA-C Unavailable Unavailable Cole, M Christopher PA-C Unavailable Unavailable Cole, M Christopher PA-C Unavailable Unavailable Cole, M Christopher PA-C Unavailable Unavailable Cole, M Christopher PA-C Unavailable Unavailable Cole, M Christopher PA-C Unavailable Unavailable Cole, M Christopher PA-C Unavailable Unavailable Cole, M Christopher PA-C Unavailable Unavailable Cole, M Christopher PA-C Unavailable Unavailable Cole, M Christopher PA-C Unavailable Unavailable Cole, M Christopher PA-C Unavailable Unavailable Cole, M Christopher PA-C Unavailable Unavailable Cole, M Christopher PA-C Unavailable Unavailable Cole, M Christopher PA-C Unavailable Unavailable Cole, M Christopher PA-C Unavailable Unavailable Cole, M Christopher PA-C Unavailable Unavailable Cole, M Christopher PA-C Unavailable Unavailable Cole, M Christopher PA-C Unavailable Unavailable Cole, M Christopher PA-C Unavailable Unavailable Cole, M Christopher PA-C Unavailable Unavailable Cole, M Christopher PA-C Unavailable Unavailable Cole, M Christopher PA-C Unavailable Unavailable Cole, M Christopher PA-C Unavailable Unavailable Re-disclosure Warning The records that you are about to access may contain information from federally-assisted alcohol or drug abuse programs. If such information is present, then the following federally mandated warning applies: This information has been disclosed to you from records protected by federal confidentiality rules (42 CFR part 2). The federal rules prohibit you from making any further disclosure of this information unless further disclosure is expressly permitted by the written consent of the person to whom it pertains or as otherwise permitted by 42 CFR part 2. A general authorization for the release of medical or other information is NOT sufficient for this purpose. The Federal rules restrict any use of the information to criminally investigate or prosecute any alcohol or drug abuse patient.The records that you are about to access may contain highly sensitive health information, the redisclosure of which is protected by Article 27-F of the [facility] Public Health law. If you continue you may have access to information: Regarding HIV / AIDS; Provided by facilities licensed or operated by the [facility] Office of Mental Health; or Provided by the [facility] Office for People With Developmental Disabilities. If such information is present, then the following [place] State mandated warning applies: This information has been disclosed to you from confidential records which are protected by state law. State law prohibits you from making any further disclosure of this information without the specific written consent of the person to whom it pertains, or as otherwise permitted by law. Any unauthorized further disclosure in violation of state law may result in a fine or halfway sentence or both. A general authorization for the release of medical or other information is NOT sufficient authorization for further disc losure. Allergies and Adverse Reactions Type Description Substance Reaction Status Data Source(s ) No Known Environmental Allergies No Known Environmental Al [facility] No Known Food Allergies No Known Food Allergies [facility] Propensity to adverse reactions ZOFRAN [facility] Encounters Encounter Providers Location Date Indications Data Source(s ) Emergency Attender: LUCRECIA BURKS MDConsultant: CHRISTY Ji MD 03/01/2021 09:26:00 PM EST - 03/01/2021 10:21:[address] [facility] Patient discharged. Outpatient Attender: David CUMMINGS 02/05/20 09:12:11 AM EST - 02/04/2021 10:31:57 AM EST [facility] ([facility] ) Outpatient Attender: Pablo HAZEL 12/25/2020 02:17:00 PM [facility] Outpatient Attender: Pablo Alvarez FNPReferrer: [id number] M [id number] 12/25/2020 01:54:00 PM EDT - 12/25/2020 01:54:00 PM [facility] Outpatient 12/25/2020 09:33:51 AM EDT - 021 04:06:46 PM EDT [facility] ([facility]) Outpatient COUNT [facility]CLUDES [facility] 12/25/2020 12:00:00 AM EDT eCW1 ([facility]) Outpatient Attender: Riley Cole PA-C 11/11/2020 12:53:38 PM EDT - 11/11/2020 02:54:49 PM EDT [facility] ([facility]) Outpatient Attender: Peggy Gold MD 0 07/16/2020 02:41:16 PM EDT - 07/16/2020 03:52:09 PM EDT [facility] ([facility]) Outpatient Attender: JUANY ANDREW MD 12/21 02:34:00 PM EDT - 01/18/2020 02:34:00 PM EDT [facility] Outpatient Attender: JUANY ANDREW MD 11/2019 02:59:00 PM EDT - 12/29/2019 02:59:00 PM EDT [facility] Outpatient Attender: JUANY ANDREW MD 11/21 06:30:00 AM EDT - 12/19/2019 09:21:00 AM EDT [facility] Patient discharged. Outpatient Attender: JUANY ANDREW MD 11/21 09:30:00 AM EDT - 12/13/2019 10:20:00 AM EDT [facility] Patient discharged. Outpatient Attender: JUANY ANDREW MD 11/21 01:09:14 PM EDT - 12/13/2019 02:14:00 PM EDT [facility] Patient discharged. Outpatient Attender: JUANY ANDREW MD 11/21 12:51:00 PM EDT - 12/11/2019 01:51:00 PM EDT [facility] Outpatient Attender: JUANY ANDREW MD 11/20 03:34:00 PM EDT - 12/06/2019 03:34:00 PM T [facility] Outpatient Attender: CHELSEA DUNCAN MD 09/13/2019 08:30: 00 AM [facility] Emergency Attender: RILEY CUMMINGS 08/05/2018 04:15:00 PM EDT - 08/05/2018 04:32:00 PM [facility] Patient discharged. Emergency Attender: JUAN JOSE CUMMINGS EMERGENCY ROOM-ER 04/2018 05:46:00 PM EDT - 07/21/2018 07:30:00 PM [facility] Immunizations Vaccine Date Status Description Data Source(s) COVID-19 VACCINE [facility] 12/21/2020 12:00:00 AM EDT completed [facility] Vaccine Series Complete: YESThis Data wa s Submitted to [facility]. COVID-19 VACCINE Pfizer 11/30/2020 12:00:00 AM EDT completed [facility] Vaccine Series Complete: NOThis Data was Submitted to [facility]. Medications No Information Insurance Providers Payer name Policy type / Coverage type Policy ID Covered green party ID Covered green party's relationship to [place] Policy [place] Plan Information [facility] [id number] SPO [id number] [facility] Health Plan / [id number] Self [id number] [facility] HEALTH PLAN [id number] S [id number] [facility] HEALTH PLAN [id number] S [id number] [facility] [id number] SPO [id number] [facility] PLAN UNAVAILABLE SPO UNAVAILABLE [facility] [id number] SP [id number] [facility] HUMANA [id number] HU2 [id number] SELF PAY ONLY SP [facility] [place] [id number] [facility] AT [facility] [place] [id number] 18 [id number] [place] [employer]MANA - O/P [id number] [id number] [facility] WPS [id number] SPO [id number] HUMANA [place] [facility] O [id number] S [id number] [facility] [place] [id number] HU2 [id number] [facility] [id number] SP [id number] N [facility] CLAIMS HUGO -O/P [id number] 18 [id number] [facility] [place] [id number] 18 [id number] Problems, Conditions, and Diagnoses Code Display Name Description Problem Type Effective Dates Data Source(s) S99.921A Unspecified injury of right foot, initia l encounter UNSPECIFIED INJURY OF RIGHT FOOT, INITIAL ENCOUNTER Diagnosis 12/25/2020 01:54:00 PM EDT [facility] [id number] Encounter for other specified surgical a ftercare Encounter for other specified surgical aftercare Diagnosis 01/18/2020 02:34:00 PM EDT [facility] Surgeries/Procedures No Information Results ID Date Data Source [id number] 03/01/2021 09:26:00 PM EST [facility] 1 OrderSheet [facility] Emergency Department [address] [place] [address] Phone #: ext- [phone] 03/01/2021 21:19 Patient: ELIZABETH VALERA Sex: F : 1990 Age: 30yWEIGHT:97.5 kg (S) HEIGHT:72 inches (S) BMI:29.2ALLERGIES: ZofranCHIEF COMPLAINT: headacheLAB ORDERSOrder Description Priority Entered Acknowledged InitialedDIAGNOSTIC STUDY ORDERSOrder Description Priority Entered Acknowledged InitialedMEDICATION/IV/DRIP/FLUID ORDERSOrder Description Priority Entered Acknowledged InitialedMetoclopramide PO 21:58 03/01/2021 22:01 Davon,10 mg Lucrecia Burks MD; Jacquelyn Marshall Reason for ordering with alerts: Benefits outweigh risks -- 21:58 03/01/2021 Lucrecia Burks MDHYDROcodone-AP 21:58 03/01/2021 22:01 FRANK Mays (5- 325mg)PO 1 Lucrecia Burks MD; Jacquelyn RMaciejtab (HIGH ALERTMEDICATION) Reason for ordering with alerts: Benefits outweigh risks -- 21:58 03/01/2021 Lucrecia Burks MDGENERAL ORDERSOrder Description Priority Entered Acknowledged Initialed[Electronically signed by Jacquelyn Mays R.N. (22:21 03/01/2021)][Electronically signed by Lucrecia Burks MD (07:22 03/02/2021)][Electronically locked by Jacquelyn Mays R.N. (22:21 03/01/2021)] Name Value Range Interpretation Code Description Data Leslie rce(s) Supporting Document(s) ID Date Data Source [id number] 03/01/2021 09:26:00 PM EST [facility] 1 Medication Reconciliation Report [facility] Emergency Department [address] [place] [address] Phone #: ext- [phone] 03/01/2021 21:19 Patient: ELIZABETH VALERA Sex: F : 1990 Age: 30yWeight: 97.5 kgHeight/Length: 72 in.BMI: 29.2ALLERGIES: ZofranThe patient's Home Medications are listed below:NONE.The source(s) of the original Home Medication information:Not obtained.The following Medications were given to the patient in the Emergency Department:Metoclopramide [PO] PO 10 mg, administered: 22:03/01/2021HYDROCODONE-APAP (5-325MG) [PO] PO 1 tab, administered: 22:03/01/2021The following Medications were prescribed to the patient:None. Name Value Range Interpretation Code Description Data Leslie rce(s) Supporting Document(s) ID Date Data Source [id number] 03/01/2021 09:26:00 PM EST [facility] 1 Medication Administration Record [facility] Emergency Department [address] [place] [address] Phone #: ext- [phone] 03/01/2021 21:19 Patient: ELIZABETH VALERA Sex: F : 1990 Age: 30yWeight: 97.5 kgHeight/Length: 72 inBMI: 29.2ALLERGIES: Zofran Date/Time Medication Administered Medication OrderedGiven METOCLOPRAMIDE [PO] Metoclopramide PO 10 mg22:03/01/2021 Dose: 10 mg Jacquelyn Sierra, R.NAvaGiven HYDROCODONE-APAP (5-325MG) [PO] HYDROcodone- APAP22:03/01/2021 (ACETAMINOPHEN-HYDROCODONE) (5-325mg)PO 1 tab (Jacquelyn Wiggins, R.N. Dose: 1 tab PO MEDICATION) Name Value Range Interpretation Code Description Data Leslie rce(s) Supporting Document(s) ID Date Data Source [id number] 03/01/2021 09:26:[address] [facility] 1 General Instructions [facility] Emergency Department [address] [place] [address] Phone #: ext- [phone] 03/01/2021 21:19 Patient: ELIZABETH VALERA Sex: F : 1990 Age: 30yEnlarged Lymph Node right occiput.INSTRUCTIONSDo not work today, tomorrow.(follow up with your doctor. Return if worse or any new symptoms.).Warnings: Further evaluation is necessary.GENERAL WARNINGS: Return or contact your physician immediately if your condition worsens orchanges unex pectedly, if not improving as expected, or if other problems arise.Your Current Medications: .No home medication.Follow-up:Follow up with your doctor Wednesday even if well and after tests are completed. Call for an appointment.Reason for referral: evaluation. Summary of care provided to patient via paper.Understanding of the discharge instructions verbalized by patient.Do not work today, tomorrow.(Electronically signed by Lucrecia Burks MD 03/02/2021 07:22) Name Value Range Interpretation Code Description Data Leslie rce(s) Supporting Document(s) ID Date Data Source [id number] 03/01/2021 09:26:[address] [facility] 1 Clinical Report - Nurses [facility] Emergency Department [address] [place] [address] Phone #: ext- [phone] 03/01/2021 21:19 Patient: ELIZABETH VALERA Sex: F : 1990 Age: 30yTRIAGEArrived by private vehicle. Historian: patient.Acuity: LEVEL 4.Chief Complaint: HEADACHE and (lump on back of head).Alert. No acute distress.This started yesterday. ( Pt reports noticing a lump on the back of her head that was painful yesterday.The pain has gotten progressively worse and has not improved with tylenol. 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 SIRS criteria negative: heart rate greater than 90. No possible sources ofinfection.KIMBERLY COMA SCORE: 15- eyes open- spontaneous (4); best verbal response- oriented (5); bestmotor response- obeys commands (6). --21:26 03/01/21 Jacquelyn Mays R.N.21:20 03/01/21. BP: 132/78. MAP: 96. HR: 91. RR: 20. O2 saturation: 100%. Temp: 98.7 F. Pain levelnow: 09/28. --21:26 03/01/21 Jacquelyn Mays R.N.Weight: 97.5 kg stated. Height/Length: 72 inches Per Patient. BMI: 29.2. --21:24 03/01/21 Jacquelyn Mays R.N.MedicationsNone. --21:23 03/01/21 Jacquelyn Mays R.N.AllergiesZofran. --21:23 03/01/21 Jacquelyn Mays R.N.PROBLEMS:no known problems.ADDITIONAL SURGERIES:Adenoidectomy.Hysterectomy.Tonsillectomy.Tubal Ligation. --21:23 03/01/21 Jacquelyn Mays R.N. 2 Clinical Report - Nurses [facility] Emergency Department [address] [place] [address] Phone #: ext- [phone] 03/01/2021 21:19 [id number] Sex[facility] F : 1990 Age: 30y History PAST MEDICAL HX: Has had a hysterectomy. Denies current . SOCIAL HX: Light tobacco smoker (cigarette)- less than 1/2 a pack per day. No alcohol use or drug use. No recent travel. No known contact with a sick individual. The patient was offered HIV testing but declined and hepatitis C testing but declined. The patient has not traveled outside the [place] Infectious disease exposure: The patient was not exposed to C-diff, MRSA, VRE, CRE or Coronavirus. SELF HARM ASSESSMENT: Self harm assessment was performed. The patient answered "no" to the question(s) "Have you recently felt down, depressed, or hopeless?", "Do you have thoughts of harming or killing yourself?", "Do you have a plan for harming or killing yourself?", "Have you recently had thoughts about harming or killing others?", "Do you have any dangerous items in your possession?", "Have you noticed less interest or pleasure in doing things?&q uot;, "Are you here because you tried to hurt yourself?" and "Have you ever tried to hurt yourself before today?". ABUSE ASSESSMENT: No report of abuse. NUTRITIONAL RISK ASSESSMENT: The nutritional risk assessment revealed no deficiencies. FUNCTIONAL ASSESSMENT: Functional assessment: no impairments noted. LEARNING NEEDS ASSESSMENT: The learning needs assessment revealed no barriers. FALL RISK ASSESSMENT: Fall risk assessment completed. No risk factors identified. SKIN INTEGRITY ASSESSMENT: Skin integrity risk assessment completed. No skin integrity risk identified. --03/01/21 Jacquelyn Mays R.N. Interventions Identification and allergy band on patient. To treatment room. --03/01/21 Jacquelyn Mays R.N.PHYSICAL ASSESSMENTAmbulatory to room.GENERAL / NEURO / PSYCH: Alert. Oriented X 4. Appears in no acute distress. Speech within normallimits.HEENT: No facial asymmetry noted. Pupils equal, round and reactive to light. ( raised bump to posteriorhead/neck).RESPIRATORY: Respirations not labored. Breath sounds within normal limits.CVS: Capillary refill less than 2 seconds.GI / : Abdomen soft and nontender.SKIN: Skin is warm and dry. --21:55 03/01/21 Jacquelyn Mays R.N.NURSING PROGRESS NOTES22:03/01/2021 Metoclopramide PO 10 mg given. Allergies verified and confirmed 5 rights. Information 3 Clinical Report - Nurses [facility] Emergency Department [address] [place] [address] Phone #: ext- [phone] 03/01/2021 21:19 Patient: ELIZABETH VALERA Sex: F : 1990 Age: 30y reviewed with patient including reason for taking this medication. Verbalizes understanding. --22:03/01/21 Jacquelyn Mays R.N. 22:03/01/2021 HYDROCODONE-APAP (5-325MG) (Acetaminophen-HYDROcodone) PO 1 tab given. Allergies verified and confirmed 5 rights. Information reviewed with patient including reason for taking this medication and sedative warning. Verbalizes understanding. --22:03/01/21 Jacquelyn Mays R.N.DISPOSITION / DISCHARGE Condition at departure: improved and stable. No learning barriers present. Disch arge instructions provided and reviewed with the patient. School note given. Patient verbalized understanding. Written instructions provided in Liberian. The patient was discharged by the physician. She was discharged home and accompanied by spouse. She left ambulatory and via private vehicle. Spouse driving. --22:03/01/21 Jacquelyn Mays R.N. 22:20 03/01/21. BP: 128/75. MAP: 92. HR: 85. RR: 16. O2 saturation: 100%. Temp: 97.9 F. Pain level now: 10. --22:03/01/21 Jacquelyn Mays R.N. Departure time: 22:03/01/2021. --22:03/01/21 Jacquelyn Mays R.N.Locked/Released at 03/01/2021 22:21 by Jacquelyn Mays R.N. Name Value Range Interpretation Code Description Data Leslie rce(s) Supporting Document(s) ID Date Data Source [id number] 03/01/2021 09:26:00 PM EST [facility] 1 Clinical Report - Physicians/Mid Levels [facility] Emergency Department [address] [place] [address] Phone #: ext- [phone] 03/01/2021 21:19 Patient: ELIZABETH VALERA Sex: F : 1990 Age: 30y Arrived- By private vehicle. Historian- patient. Disposition decision: 22:02 03/01/2021.HISTORY OF PRESENT ILLNESS Chief Complaint: HEADACHE. Is still present. This started yesterday. It is described as sharp. Quality described as unlike previous headaches or not described as tightness, fullness, throbbing or well localized. No neck pain. Not located in the facial region. Located in the occipital region. At its maximum, severity described as moderate. When seen in the E.D., severity described as moderate. Modifying factors: (worse when pressure applied to area. relieved with no pressure to the site). No preceding symptoms, blurred vision, photophobia, associated nausea or numbness. No weakness or vomiting. (This started yesterday. ( Pt reports noticing a lump on the back of her head that was painful yesterday. The pain has gotten progressively worse and has not improved with tylenol. She denies any trauma or falls.).). No recent travel. Similar symptoms previously. None. Recent medical care: Not recently seen/assessed.REVIEW OF SYSTEMSNo fever, muscle aches, sinus pressure or ear pain or drainage. No sore throat or throat, chest pain orpain or difficulty breathing. No cough, abdominal pain or pain, diarrhea or pain with urination. No skinrash or rash, back pain or pain or chills. No fever, double vision, hearing loss, nasal congestion or runnynose. No cough, difficulty breathing, constipation, diarrhea or nausea. No vomiting, urinary frequency ,hematuria, joint pain or neck pain. No laceration, seizure, easy bruising, difficulty with urination orswelling. No loss of smell. The patient has had a headache.PAST HISTORYSee nurses notes.SOCIAL HISTORYNo drug use.ADDITIONAL NOTESThe nursing notes have been reviewed.PHYSICAL EXAMVital Signs: 03/01/2021 21:20 BP: 132/78. MAP: 96. HR: 91. RR: 20. O2 saturation: 100%. Temp: 98.7 F.Pain level now: 09/28. Have been reviewed and appear to be correct. Blood pressure normal. Mean 2 Clinical Report - Physicians/Mid Levels [facility] Emergency Department [address] [place] [address] Phone #: ext- [phone] 03/01/2021 21:19 Patient: ELIZABETH VALERA Sex: F : 1990 Age: 30y arterial pressure- normal. Heart rate normal. Respiratory rate normal. Temperature normal. Oxygen saturation normal. Appearance: Alert. No acute distress. Head: Occiput: (occipital lymph node tender to palpation on left). Eyes: Pupils equal, round and reactive to light. Eyes normal inspection. ENT: Ears normal. Nose normal. Pharynx normal. Neck: Normal inspection. Neck supple. CVS: Normal heart rate and rhythm. Heart sounds normal. Pulses normal. Respiratory: No respiratory distress. Painless inspiration. Breath sounds normal. Abdomen: Soft and nontender. Back: Normal inspection. No CVA tenderness. Skin: Skin warm and dry. Normal skin color. No rash. Normal skin turgor. Extremities: Extremities exhibit normal ROM. No lower extremity edema. Neuro: Oriented X 3. Alert. Mood/affect normal. Speech normal. Cranial nerves normal (as tested). No cerebellar findings. No motor deficit. No sensory deficit.PROGRESS AND PROCEDURESCourse of Care: pt has a palpable tender lymph node to the right occiput. the entire posterior cervicalchain is palpable. the most superior palpable lymph node is tender to palpation. no redness, noevidence of infection. no rashes to the skin. Pt encouraged to f/u with pcp and to take tylenol and motrinfor pain. Patient/family counseled. Disposition: Discharged. Condition: good and stable.CLINICAL IMPRESSION Enlarged Lymph Node right occiput.INSTRUCTIONS Do not work today, tomorrow. (follow up with your doctor. Return if worse or any new symptoms.). Warnings: Further evaluation is necessary. GENERAL WARNINGS: Return or contact your physician immediately if your condition worsens or changes unexpectedly, if not improving as expected, or if other problems arise. Your Current Medications: . No home medication. 3 Clinical Report - Physicians/Mid Levels [facility] Emergency Department [address] [place] [address] Phone #: ext- [phone] 03/01/2021 21:19 Patient: ELIZABETH VALERA Sex: F : 1990 Age: 30y Follow-up: Follow up with your doctor Wednesday even if well and after tests are completed. Call for an appointment. Reason for referral: evaluation. Summary of care provided to patient via paper. Understanding of the discharge instructions verbalized by patient.(Electronically signed by Lucrecia Burks MD 03/02/2021 07: 22) Name Value Range Interpretation Code Description Data Leslie rce(s) Supporting Document(s) ID Date Data Source [id number] 02/04/2021 09:30:00 AM EST [facility] Name Value Range Interpretation Code Description Data Leslie rce(s) Supporting Document(s) SARS-CoV-2 RNA Resp Ql KAMILA+probe NOT DETECTED [facility] This lab was ordered by ABY moon and reported by ABY Grossman. ID Date Data Source [id number] 12/25/2020 02:25:00 PM EDT Fransisco chinchilla DATE OF EXAMINATION: 12/25/2020 13:59 EDT HISTORY: Injury right foot TECHNIQUE: 4 views of the right foot were obtained. FINDINGS: No evidence of acute fracture or dislocation. Alignment is normal. No aggressiveosseous lesions or erosions. Bone mineral density is unremarkable. Visualizedsoft tissues are normal. IMPRESSION: No evidence of acute fracture or dislocation. Electronically signed in PS360 by: Clement Bruce M.D. 12/25/2020 14:19 EDT Name Value Range Interpretation Code Description Data Leslie rce(s) Supporting Document(s) ID Date Data Source [id number] 11/11/2020 01:00:00 PM EDT [facility] Name Value Range Interpretation Code Description Data Leslie rce(s) Supporting Document(s) SARS-CoV-2 RNA Resp Ql KAMILA+probe NOT DETECTED [facility] This lab was ordered by ABY moon and reported by ABY Grossman. ID Date Data Source [id number] 07/18/2020 10:55:00 AM EDT [facility] Name Value Range Interpretation Code Description Data Leslie rce(s) Supporting Document(s) COVID-19 RT-PCR NASAL SWAB Not Detected Not Detected [facility] A not detected (negative) test result fo r this test means that SARS-CoV-2 RNA was not present in the specimen above the limit ofdetection. Laboratory test results should always be considered in thecontext of clinical observations and epidemiological data in making afinal diagnosis and patient management decisions. Results will bereported to government agencies as required.This test has received Emergency Use Authorization (EUA). We will continue to follow federal and state requirements for COVID-19 reporting. This test has been authorized only for the detection of RNAfrom SARS-CoV-2 virus and diagnosis of SARS-CoV-2 virus infection, notfor any other viruses or pathogens. This test is only authorized for the duration of the declaration that circumstances exist justifying the authorization of the emergency use of in vitro diagnostic tests for detection of SARS-CoV-2 virus and/or diagnosis of SARS-CoV-2 virusinfection under section 564(b)(1) of the Act, 21 U.S.C. section 360bbb-3(b)(1), unless the authorization is terminated or revoked sooner. We will continue to follow federal and state requirements for both notification of results and any confirmatory testing that is required by another agency. This test was developed and its performance characteristics determined by [facility] and verified at [facility]. It has not been cleared or approved by the U.S. Food and Drug Administration for diagnostic use. This test has been authorized by FDA under an EUA for use by authorized laboratories. Results should be used in conjunction with clinical findings, and should not form the sole basis for a diagnosis or treatment decision. Methods: SARS-CoV-2 Multiplex RT-PCR Assay ID Date Data Source [id number] 07/16/2020 03:45:00 PM EDT [facility] Name Value Range Interpretation Code Description Data Leslie rce(s) Supporting Document(s) SARS-CoV-2 (COVID-19) N gene [Presence] in Respiratory specimen by KAMILA with probe detection NEGATIVE [facility] This lab was ordered by Ngoc Dugan and reported by [facility]. ID Date Data Source [id number] 05/25/2020 10:24:00 PM EST [facility] Name Value Range Interpretation Code Description Data Leslie rce(s) Supporting Document(s) SARS coronavirus 2 RNA Not Detected [facility] This lab was ordered by [facility] and reported by [facility]. ID Date Data Source [id number] 05/25/2020 08:59:00 PM EST [facility] Name Value Range Interpretation Code Description Data Leslie rce(s) Supporting Document(s) SARS COVID ANTIGEN NEGATIVE [facility] This lab was ordered by ANIA galicia nd reported by [facility]. Procedure Social History Code Duration Value Status Description Data Source(s ) Smoking 12/25/2020 12:00:00 AM EDT Former Smoker completed Former Smoker eCW1 ([facility]) Vital Signs ID Date Data Source UNK Name Value Range Interpretation Code Description Data Source(s) Body height 70 [in_i] 70 [in_i] eCW1 ([facility]) Body weight 200 [lb_av] 200 [lb_av] eCW1 ([facility]) Body mass index (BMI) [Ratio] 28.69 kg/m2 28.69 kg/m2 eCW1 ([facility]) Body temperature 97.9 [degF] 97.9 [degF] eCW1 ( [facility]) Heart rate 90 /min 90 /min eCW1 ([facility]) Respiratory rate 17 /min 17 /min eCW1 ([facility]) Oxygen saturation in Arterial blood by Pulse oximetry 99 % 99 % eCW1 ([facility]) Systolic blood pressure 128 mm[Hg] 128 mm[Hg] M EDENT ([facility]) Diastolic blood pressure 79 mm[Hg] 79 mm[Hg] MEDENT ([facility]) Heart rate 93 /min 93 /min MEDENT ([facility]) Body weight 196.00 [lb_av] 196.00 [lb_av] MEDEN T ([facility]) Body weight 88.906 kg 88.906 kg MEDENT ([facility]) Body height 72 [in_i] 72 [facility]_i] [facility] 6'0" Body mass index (BMI) [Ratio] 26.6 kg/m2 26.6 k g/m2 [facility] ([facility]) Body surface area Derived from formula 2.11 m2 2.11 m2 [facility] ([facility]) ID Date Data Source [id number] 01/18/2020 02:34:38 PM EDT [facility] Name Value Range Interpretation Code Description Data Source(s) WEIGHT RECORDED 205.00 pounds 205.00 pounds [facility] Height 72 Inches 072 Inches [facility]
--- OUTSIDE RECORDS SUMMARY | 2021-03-02 17:58 | CCD ---
Author Author [facility] Organization [facility] Address Unknown Phone Unavailable Care Team Providers [employer] Name Role Phone Pablo Alvarez Unavailable PROBLEMS No Information ALLERGIES Allergen (clinical drug ingredient) Drug/Non Drug Allergy do cumented on EMR Reaction Allergy Type Onset Date Status ondansetron Zofran([facility] Code:[address]-63) hives Drug Allergy Active ENCOUNTERS from 1990 to 2020-12-25 Encounter Location Date Provider Diagnosis [address] [address] Dec, Pablo Maceett Injury of right foot, initial encounter S99.921A IMMUNIZATIONS No Information SOCIAL HISTORY Tobacco Use: Social History Observation Description Date Details (start date - stop date) Former Smoker Sex Assigned At : Social History Observation Description Sex Assigned At Unknown Tobacco Use/Smoking Question Answer Notes Are you a former smoker How long has it been since you last smoked? 3-6 months REASON FOR REFERRAL No Information VITAL SIGNS Height 70 in Dec, Weight 200 lbs Dec, BMI 28.69 kg/m2 Dec, Temperature 97.9 degrees Fahrenheit Dec, Heart Rate 90 /min Dec, Respiratory Rate 17 /min Dec, Oximetry 99 % Dec, Blood pressure systolic 105 mmHg Dec, Blood pressure diastolic 68 mmHg Dec, MEDICATIONS No Known Medications PROCEDURES No Information RESULTS No Results REASON FOR VISIT Right Foot ( dropped heavy item on it) MEDICAL (GENERAL) HISTORY Type Description Date Surgical History hysterectomy 2019 Hospitalization History surgical/child Goals Section No Information Health Concerns No Information MEDICAL EQUIPMENT No Information MENTAL STATUS No Information FUNCTIONAL STATUS No Information ASSESSMENTS Encounter Date Diagnosis Assessment Notes Treatment Notes Treatm ent Clinical Notes Dec, Injury of right foot, initial encounter (ICD-10 - S99.921A) Xrays negative for fracture per radiologist. Keep karin wrap (3" applied here) on during the day. Remove at bedtime. Rest, elevate foot, use ice pack 2-3 times per day for 15 mins. Take OTC pain medications as directed. Ok to bear wt. , All questions and concerns addressed, patient understanding and agreeable to plan. Patient encouraged to follow up at the clinic for any additional or new questio ns or concerns. PLAN OF TREATMENT Treatment Notes Assessment Notes Clinical Notes Injury of right foot, initial encounter Xrays negative for fracture per radiologist. Keep karin wrap (3" applied here) on during the day. Remove at bedtime. Rest, elevate foot, use ice pack 2-3 times per day for 15 mins. Take OTC pain medications as directed. Ok to bear wt. , All questions and concerns addressed, patient understanding and agreeable to plan. Patient encouraged to follow up at the clinic for any additional or new questions or concerns. Treatment Notes Test Name Order Date XRAY FOOT 2020-12-25 Next Appt Details prn Reason: Insurance Providers Payer Name Payer Address Payer Phone Insured Name Patient Relati onship to Insured Coverage Start Date Coverage End Date [facility] [employer] [id number] [facility] [phone] Sherry Islas self
[2021-03-02 18:05] VITALS: BP 118/70
--- OUTSIDE RECORDS SUMMARY | 2021-03-03 02:16 | CCD ---
Author Author [facility] Organization [facility] Address Unknown Phone Unavailable Care Team Providers Care Aircraft Painter Name Role Phone Luz HUFF MD Unavailable [...] Unavailable Luz HUFF MD Unavailable Unavailable Luz UHFF MD Unavailable Unavailable Luz HUFF MD Unavailable [...] JUAN JOSE PA Unavailable Unavailable TOD, JUAN JSOE PA Unavailable Unavailable SYMENOW, G CHRISTOPHER PA [...] Tram BURKS MD Unavailable Unavailable Adriana Alvarez LEGAL ASSISTANT Unavailable Unavailable Adriana Alvarez LEGAL ASSISTANT Unavailable Unavailable BurbankAdriana corrales LEGAL ASSISTANT Unavailable Unavailable Antonio, Adriana Shah LEGAL ASSISTANT Unavailable Unavailable [place], Adriana Shah LEGAL ASSISTANT Unavailable Unavailable Antonio, Adriana Shah LEGAL ASSISTANT Unavailable Unavailable [place], Adriana Shah LEGAL ASSISTANT Unavailable Unavailable [place], Adriana Shah LEGAL ASSISTANT Unavailable Unavailable Antonio, Adriana Shah LEGAL ASSISTANT Unavailable Unavailable Antonio, Adriana Shah LEGAL ASSISTANT Unavailable Unavailable Antoino, Adriana Shah LEGAL ASSISTANT Unavailable Unavailable Antonio, Adriana Shah LEGAL ASSISTANT Unavailable Unavailable [place], Adriana Shah LEGAL ASSISTANT Unavailable Unavailable [place], Adriana Shah LEGAL ASSISTANT Unavailable Unavailable MEDENT_[id number], [id number] Unavailable [phone] MEDENT_[id number], [id number] Unavailable [phone] MEDENT_4785, [id number] Unavailable [phone] MEDENT_4785, [id number] Unavailable [phone] MEDENT_4785, [id number] Unavailable [phone] MEDENT_4785, [id number] Unavailable [phone] MEDENT_4785, [id number] Unavailable +[phone] MEDENT_4785, [id number] Unavailable [phone] MEDENT_4785, [id number] Unavailable +[phone] MEDENT_4785, [id number] Unavailable +[phone] MEDENT_4785, [id number] Unavailable [phone] MEDENT_4785, [id number] Unavailable [phone] MEDENT_4785, [id number] Unavailable [phone] MEDENT_[id number], [id number] Unavailable [phone] MEDENT_[id number], [id number] Unavailable +[phone] MEDENT_[id number], [id number] Unavailable [phone] Madina Cole PA-C Unavailable [...] Unavailable Cole, M Christopher PA-C Unavailable Unavailable CHANLIECCO, C JOYCE MD Unavailable Unavailable CHANLIECCO, C JOYCE MD Unavailable Unavailable CHANLIECCO, Balwinder COOK MD Unavailable Unavailable CHANLIECCO, C JOYCE MD Unavailable Unavailable CHANLIECCO, C JOYCE MD Unavailable Unavailable CHANLIECCO, C JOYCE MD Unavailable Unavailable CHANLIECCO, C JOYCE MD Unavailable Unavailable CHANLIECCO, C JOYCE MD Unavailable Unavailable CHANLIECCO, C JOYCE MD Unavailable Unavailable CHANLIECCO, C JOYCE MD Unavailable Unavailable CHANLIECCO, C JOYCE MD Unavailable Unavailable Re-disclosure Warning The records that [...] is protected by Article 27-F of the [facility] Public Health law. If you continue you may have access to information: Regarding HIV / AIDS; Provided by facilities licensed or operated by the [facility] Office of Mental Health; or Provided by the [facility] Office for People With Developmental Disabilities. If such information is present, then the following [facility] mandated warning applies: This information has been [...] law may result in a fine or fpc sentence or both. A general authorization for the release of medical or other information is NOT sufficient authorization for further disc losure. Allergies and Adverse Reactions Type Description Substance Reaction Status Data Source(s ) No Known Environmental Allergies No Known Environmental Al [facility] No Known Food Allergies No Known Food Allergies [facility] Propensity to adverse reactions ZOFRAN ZOSUNY [facility] Encounters Encounter Providers Location Date Indications Data Source(s ) Emergency Attender: JOYCE MOORE MDConsultant: VANNESA HUFF MD 03/02/2021 08:09:00 PM [facility] - 03/02/2021 09:45:00 PM [facility] Patient discharged. Emergency Attender: LUCRECIA BURKS MDConsultant: CHRISTY Ji MD 03/01/2021 09:26:00 PM [facility] - 03/01/2021 10:21:00 PM [facility] Patient discharged. Outpatient Attender: David CUMMINGS 02/05/20 09:12:11 AM EST - 02/04/2021 10:31:57 AM EST [facility] ([facility] ) Outpatient Attender: Pablo HAZEL 12/25/2020 02:17:00 PM [facility] Outpatient Attender: Pablo Alvarez FNPReferrer: [id number] M [id number] 12/25/2020 01:54:00 PM [facility] 12/25/2020 01:54:00 PM EDT [facility] Outpatient 12/25/2020 09:33:51 AM EDT - 021 04:06:46 PM EDT [facility] Outpatient [facility] 12/25/2020 12:00:00 AM EDT eCW1 ([facility]) Outpatient Attender: Riley Cole PA-C 11/11/2020 12:53:38 PM EDT - 11/11/2020 02:54:49 PM EDT [facility] Outpatient Attender: Peggy Gold MD 0 07/16/2020 02:41:16 PM EDT - 07/16/2020 03:52:09 PM EDT [facility] Outpatient Attender: JUANY ANDREW MD 12/21 02:34:00 PM EDT - 01/18/2020 02:34:00 PM EDT [facility] Outpatient Attender: JUANY ANDREW MD 11/2019 02:59:00 PM EDT - 12/29/2019 02:59:00 PM EDT [facility] Outpatient Attender: JUANY ANDREW MD 11/21 06:30:00 AM EDT - 12/19/2019 09:21:00 AM EDT [facility] Patient discharged. Outpatient Attender: JUANY ANDREW MD 11/21 09:30:00 AM EDT - 12/13/2019 10:20:00 AM EDT [facility] Patient discharged. Outpatient Attender: JUANY ANDREW MD 11/21 01:09:14 PM EDT - 12/13/2019 02:14:00 PM EDT [facility] Patient discharged. Outpatient Attender: JAUNY ANDREW MD 11/21 12:51:00 PM EDT - 12/11/2019 01:51:00 PM T [facility] Outpatient Attender: JUANY ANDREW MD 11/20 03:34:00 PM EDT - 12/06/2019 03:34:00 PM EDT [facility] Outpatient Attender: CHELSEA DUNCAN MD 09/13/2019 08:30: 00 AM [facility] Emergency Attender: RILEY CUMMINGS 08/05/2018 04:15:00 PM EDT - 08/05/2018 04:32:00 PM [facility] Patient discharged. Emergency Attender: JUAN JOSE CUMMINGS EMERGENCY ROOM-ER 04/2018 05:46:00 PM EDT - 07/21/2018 07:30:00 PM [facility] Immunizations Vaccine Date Status Description Data Source(s) COVID-19 VACCINE Pfizer 12/21/2020 12:00:00 AM EDT completed [facility] Vaccine Series Complete: YESThis Data wa s Submitted to [facility] Via [employer]. COVID-19 VACCINE Pfizer 11/30/2020 12:00:00 AM EDT completed [facility] Vaccine Series Complete: NOThis Data was Submitted to [facility] Via [employer]. Medications No Information Insurance Providers Payer name Policy type / Coverage type Policy ID Covered democrat ID Covered democrat's relationship to [place] Policy [place] Plan Information [facility] [id number] SPO [id number] Family Health Plan / [id number] Self [id number] [facility] [id number] S [id number] [facility] [id number] S [id number] [facility] WPS [id number] SPO [id number] [facility] UNAVAILABLE SPO UNAVAILABLE [facility] [id number] SP [id number] [facility] HUMAN [id number] SELF PAY ONLY SP [facility] [place] [id number] [facility] AT [facility] [place] [id number] 18 [id number] [facility] HUMANA - O/P [id number] 01 [id number] [facility] WPS [id number] SPO [id number] [facility] [id number] S [id number] [facility] [id number] HU2 [id number] [facility] [id number] SP [id number] N REGIONAL CLAIMS HUGO -O/P [id number] 18 [id number] [facility] AT [facility] [place] [id number] 18 [id number] Problems, Conditions, and Diagnoses Code Display Name Description Problem Type Effective Dates Data Source(s) S99.921A Unspecified injury of right foot, initia l encounter UNSPECIFIED INJURY OF RIGHT FOOT, INITIAL ENCOUNTER Diagnosis 12/25/2020 01:54:00 PM EDT [facility] [id number] Encounter for other specified surgical a ftercare Encounter for other specified surgical aftercare Diagnosis 01/18/2020 02:34:00 PM EDT [facility] Surgeries/Procedures No Information Results ID Date Data Source [id number] 03/02/2021 08:09:00 PM EST [facility] 1 OrderSheet [facility] Emergency Department [address] [place] [address] Phone #: ext- [phone] 03/02/2021 20:02 Patient: ELIZABETH VALERA Sex: F : 1990 Age: 30yWEIGHT:97.5 kg HEIGHT:72 inches BMI:29.2ALLERGIES: OndansetronCHIEF COMPLAINT: headacheDIAGNOSIS: Single hematoma to the scalp.LAB ORDERSOrder Description Priority Entered Acknowledged InitialedCBC w Diff STAT 20:20 03/02/2021 20:20 Noe Mays R.N.;CMP STAT 20:20 03/02/2021 20:20 Noe Mays R.N.;Sed. Rate STAT 20:20 03/02/2021 20:20 Noe Mays R.N.;CRP STAT 20:20 03/02/2021 20:20 Noe Mays R.N.;Influenza Nasal A B STAT 20:20 03/02/2021 20:30 Noe Mays R.N.;DIAGNOSTIC STUDY ORDERSOrder Description Priority Entered Acknowledged InitialedCT Head W/O Cont STAT 20:20 03/02/2021 20:31 Davon,(Oxygen?(No)) Noe CUMMINGS; NOTES: occipital LNS Right side Reason for Study: Headache, Vertigo/DizzinessMEDICATION/IV/DRIP/FLUID ORDERSOrder Description Priority Entered Acknowledged InitialedNS IV 1000 mL 20:20 03/02/2021 20:31 Davon,Bolus: : Bolus 1000 Noe GarNAvamL (X1) PA;Reglan 10 mg IVP 20:20 03/02/2021 20:31 Davon,X1 dose: 10 mg Noe Valladares R.N. 2 OrderSheet [facility] Emergency Department [address] [place] [address] Phone #: ext- [phone] 03/02/2021 20:02 Patient: ELIZABETH VALERA Sex: F : 1990 Age: 30y(NOW x1) PA;Benadryl IVP 25 mg 20:20 03/02/2021 20:31 Noe Mays R.N.;Vicodin (5-325mg) 20:20 03/02/2021 20:31 DavonPO 1 tab (HIGH Noe Valladares R.N.ALERT PA;MEDICATION)GENERAL ORDERSOrder Description Priority Entered Acknowledged Initialed[Electronically signed by Jacquelyn Mays R.N. (21:44 03/02/2021)][Electronically signed by Noe Wan (21:45 03/02/2021)][Electronically locked by Jacquelyn Mays R.N. (21:44 03/02/2021)] Name Value Range Interpretation Code Description Data Leslie rce(s) Supporting Document(s) ID Date Data Source [id number] 03/02/2021 08:09:00 PM EST [facility] 1 Medication Reconciliation Report [facility] Emergency Department [address] [place] [address] Phone #: ext- [phone] 03/02/2021 20:02 Patient: ELIZABETH VALREA Sex: F : 1990 Age: 30yWeight: 97.5 kgHeight/Length: 72 in.BMI: 29.2ALLERGIES: OndansetronThe patient's Home Medications are listed below:CONTINUE TAKING THE FOLLOWING MEDICATIONS: Ibuprofen Oral (800 mg), last dose: 17:00, prn Tylenol Oral 650 mg, last dose: 12:30, prnThe source(s) of the original Home Medication information:Not obtained.The following Medications were given to the patient in the Emergency Department:NS [IV] IV Fluids bolus 1000 mL wide open, administered: 20:31 1Reglan [IVP] IVP 10 mg, administered: 20:31 1Benadryl [IVP] IVP 25 mg, administered: 20:31 03/02/2021VICODIN (5- 325MG) [PO] PO 1 tab, administered: 20:31 03/02/2021The following Medications were prescribed to the patient:None. Name Value Range Interpretation Code Description Data Leslei rce(s) Supporting Document(s) ID Date Data Source [id number] 03/02/2021 08:09:00 PM EST [facility] 1 Medication Administration Record [facility] Emergency Department [address] [place] [address] Phone #: ext- [phone] 03/02/2021 20:02 Patient: ELIZABETH VALERA Sex: F : 1990 Age: 30yWeight: 97.5 kgHeight/Length: 72 inBMI: 29.2ALLERGIES: Ondansetron Date/Time Medication Administered Medication OrderedStart NS [IV] NS IV 1000 mL Bolus: : Bolus [id number]:[id number] 03/02/2021 Dose: IV Fluids mL (X1)Jacquelyn Mays R.N. Bolus: 1000 mL wide open---- Dispensed: 1000 mL bagStop Site: #1 right AC21:20 03/02/2021Trang Block R.N.Given REGLAN [IVP] (METOCLOPRAMIDE Reglan 10 mg IVP X1 dose: 10 mg20:31 03/02/2021 HCL) (NOW x1)Jacquelyn Mays R.N. Dose: 10 mg IVP Site: #1 right ACGiven BENADRYL [IVP] (DIPHENHYDRAMINE Benadryl IVP 25 mg20:31 03/02/2021 HCL)Jacquelyn Mays R.N. Dose: 25 mg IVP Site: #1 right ACGiven VICODIN (5-325MG) [PO] Vicodin (5-325mg) PO 1 tab (HIGH20:31 (ACETAMINOPHEN-HYDROCODONE) ALERT MEDICATION)Jacquelyn Mays R.N. Dose: 1 tab PO Name Value Range Interpretation Code Description Data Leslie rce(s) Supporting Document(s) ID Date Data Source [id number] 03/02/2021 08:09:00 PM EST [facility] 1 General Instructions [facility] Emergency Department [address] [place] [address] Phone #: ext- [phone] 03/02/2021 20:02 Patient: ELIZABETH VALERA Sex: F : 1990 Age: 30ySingle hematoma to the scalp.INSTRUCTIONSWarnings: Further evaluation is necessary. It is very important to follow up with a healthcare provider.GENERAL WARNINGS: Return or contact your physician immediately if your condition worsens orchanges unexpectedly, if not improving as expected, or if other problems arise. SPECIFICALLY, return ifyou develop fever, difficulty thinking, visual disturbances, fainting or extreme fatigue.Your Current Medications: Your current home medications have been reviewed.CONTINUE TAKING THE FOLLOWING MEDICATIONS:Ibuprofen Oral : Tablet 800 mg, Last: 17:00, prn.Tylenol Oral : 650 mg, Last: 12:30, prn.Follow-up:Follow up with your doctor as needed. Reason for referral: evaluation and treatment. Summary of careprovided to patient.Understanding of the discharge instructions verbalized by patient. ADDITIONAL INFORMATIONHematomaA hematoma is a collection of blood trapped outside of a blood vessel. It is what we think of as abruise or a contusion. It is usually seen under the skin as a black and blue spot on your arm or leg, ora bump on your head after an injury. It can be almost anywhere on or in your body. It can also occurin an internal organ where it can be more serious.A hematoma is caused by an injury with damage to small blood vessels. This causes blood to leakinto the tissues. Blood forms a pocket under the skin that swells and looks like a purplish patch.Hematomas sometimes form under the skin from bleeding during childbirth and can be particularlyserious. Another serious form of hematoma forms after a fall on the head, called a subduralhematoma.Gradually the blood in the hematoma is absorbed back into the body. The swelling and pain of thehematoma will go away. This takes from 1 to 4 weeks, depending on the size of the hematoma. The 2 General Instructions [facility] Emergency Department [address] [place] [address] Phone #: ext- [phone] 03/02/2021 20:02 Patient: ELIZABETH VALERA Sex: F : 1990 Age: 30yskin over the hematoma may turn bluish then brown and yellow as the blood is dissolved andabsorbed. Usually, this only takes a couple of weeks but can last months.Home care Limit motion of the joints near the hematoma. If the hematoma is large and painful, avoid sports and other vigorous physical activity until the swelling and pain goes away. Apply an ice pack (ice cubes in a plastic bag, or a frozen bag of peas, wrapped in a thin towel) over the injured area for 20 minutes every 1 to 2 hours the first day. Continue with ice packs 3 to 4 times a day for the next 2 days. Continue the use of ice packs for relief of pain and swelling as needed. If you need anything for pain, you can take acetaminophen, unless you were given a different pain medicine to use. Talk with your healthcare provider before using this medicine if you have chronic liver or kidney disease. Also talk with your healthcare provider if you have had a stomach ulcer or digestive tract bleeding, or are taking blood-thinner medicines.Follow-up careFollow up with your healthcare provider, or as advised. If X-rays or a CT scan were done, you will benotified if there is a change in th e reading, especially if it affects treatment.When to seek medical adviceCall your healthcare provider right away if any of the following occur: Redness around the hematoma Increase in pain or warmth in the hematoma Increase in size of the hematoma Fever of 100.4F (38C) or higher, or as directed by your healthcare provider If the hematoma is on the arm or leg, watch for: o Increased swelling or pain in the extremity o Numbness or tingling or blue color of the hand or foot 5410-0628 [employer]. All rights reserved. This information is not intended as a substitute for professional medical care. Alwaysfollow your healthcare professional's instructions. You have been given the following additional information: Hematoma 3 General Instructions [facility] Emergency Department [address] [place] [address] Phone #: ext- [phone] 03/02/2021 20:02 Patient: ELIZABETH VALERA A cct#: [id number] Sex: F : 1990 Age: 30y(Electronically signed by ZOILA Armenta 03/02/2021 21:45) Name Value Range Interpretation Code Description Data Leslie rce(s) Supporting Document(s) ID Date Data Source [id number] 03/02/2021 08:09:00 PM EST [facility] 1 Clinical Report - Nurses [facility] Emergency Department [address] [place] [address] Phone #: ext- [phone] 03/02/2021 20:02 Patient: ELIZABETH VALERA Sex: F : 1990 Age: 30yTRIAGEArrived by private vehicle. Historian: patient.Chief Complaint: DIZZINESS and (Seen last night for swollen lymph node, today reports dizziness, nauseaw/vomiting and increased pain to back of head.).Alert. 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 (Tylenol 12:30, 800mg motrin @17:00).SEPSIS SCREEN: NEGATIVE. SIRS criteria negative: heart rate greater than 90. Possible sources ofinfection: infection of soft tissue. --20:03/02/21 Trang Block R.N.20:04 03/02/21. BP: 143/89. MAP: 107. HR: 90. RR: 18. O2 saturation: 100%. Temp: 98.3 F. Pain levelnow: 9/10. Describes the quality as burning. --20:03/02/21 Trang Block R.N.Acuity: LEVEL 4. --20:03/02/21 Trang Block R.N.Weight: 97.5 kg. Height/Length: 72 inches. BMI: 29.2. --20:03/02/21 Trang Bolck R.N.MedicationsTylenol Oral 650 mg, as needed, last dose 12:30. --20:03/02/21 Trang Block R.N. Ibuprofen Oral (Tablet 800 mg), as needed, last dose 17:00. --20:03/02/21 Trang Block R.N.AllergiesOndansetron.(hives) --20:03/02/21 Trang Block R.N.PROBLEMS:Anemia. --20:03/02/21 Trang Block R.N.ADDITIONAL SURGERIES:Hysterectomy. --20:03/02/21 Trang Block R.N.HistoryPAST MEDICAL HX: The patient has had a hysterectomy.SOCIAL HX: Light tobacco smoker (cigarette)- less than 1/2 a pack per day. No alcohol use or drug use.The patient was offered HIV testing but declined and hepatitis C testing but declined. The patient has nottraveled outside the [place] 2 Clinical Report - Nurses [facility] Emergency Department [address] [place] [address] Phone #: ext- [phone] 03/02/2021 20:02 Patient: ELIZABETH VALERA Sex: F : 1990 Age: 30y Infectious disease exposure: No infectious disease exposure. The patient was not exposed to Coronavirus. SELF HARM ASSESSMENT: Self harm assessment was performed. The patient answered "no" to the question(s) "Have you recently felt down, depressed, or hopeless?" and "Have you recently had thoughts about harming or killing others?". ABUSE ASSESSMENT: No report of abuse. NUTRITIONAL RISK ASSESSMENT: The nutritional risk assessment revealed no deficiencies. FUNCTIONAL ASSESSMENT: Functional assessment: no impairments noted. LEARNING NEEDS ASSESSMENT: The learning needs assessment revealed no barriers. FALL RISK ASSESSMENT: Fall risk assessment completed. No risk factors identified. SKIN INTEGRITY ASSESSMENT: Skin integrity risk assessment completed. No skin integrity risk identified. --20:08 03/02/21 Trang Block R.N.PHYSICAL ASSESSMENTAmbulatory to room.GENERAL / NEURO / PSYCH: Oriented X 4. Appears in no acute distress. Alert. Speech within normallimits. ( reports dizziness, raised lymph node posterior neck/back of head).HEENT: No facial asymmetry noted. Pupils equal, round and reactive to light.RESPIRATORY: Respirations not labored.CVS: Capillary refill less than 2 seconds.GI / : The patient has had nausea. Abdomen soft and nontender.SKIN: Skin is warm and dry. --20:33 03/02/21 Jacquelyn Mays R.N.NURSING PROGRESS NOTES20:03/02/2021 Site #1 started via IV in the right antecubital space with an 20g angiocath, with aseptictechnique; one attempt. Saline lock flushed with 10 mL saline. --20:03/02/21 Jacquelyn Mays R.N. 20:03/02/2021 Started bag #1 1000 mL IV Fluids NS; bolus of 1000 mL wide open via site #1 via IV pump. Allergies verified and confirmed 5 rights. IV patency established. IV site checked: no pain, redness, or swelling. IV flushed thoroughly pre- and post-medication administration. Information reviewed with patient including reason for taking this medication. Verbalizes understanding. --20:03/02/21 Jacquelyn Mays R.N. 20:03/02/2021 Reglan (Metoclopramide HCl) IVP 10 mg given via site #1. Allergies verified and confirmed 5 rights. IV patency established. IV site checked: no pain, redness, or swelling. IV flushed thoroughly pre- and post-medication administration. IVP given by RN. Information reviewed with patient including reason for taking this medication. Verbalizes understanding. --20:31 03/02/21 Jacquelyn Mays R.N. 3 Clinical Report - Nurses [facility] Emergency Department [address] [place] [address] Phone #: ext- [phone] 03/02/2021 20:02 [facility]: [id number] Sex: F : 1990 Age: 30y 20:31 03/02/2021 Benadryl (diphenhydrAMINE HCl) IVP 25 mg given via site #1. Allergies verified and confirmed 5 rights. IV patency established. IV site checked: no pain, redness, or swelling. IV flushed thoroughly pre- and post-medication administration. IVP given by RN. Information reviewed with patient including reason for taking this medication and sedative warning. Verbalizes understanding. --20:31 03/02/21 Jacquelyn Mays R.N. 20:31 03/02/2021 VICODIN (5-325MG) (Acetaminophen-HYDROcodone) PO 1 tab given. Allergies verified and confirmed 5 rights. Information reviewed with patient including reason for taking this medication and sedative warning. Verbalizes understanding. --20:31 03/02/21 Jacquelyn Mays R.N. Patient transported to radiology by wheelchair with mask and tech. Two patient identifiers checked. --20:32 03/02/21 Jacquelyn Mays R.N. Reassessment after medication administered. Pain still present but improving. Reassessment after fluids administered. She reports no complaints and she is calm and resting quietly. Overall patient status is improved- she states feels better. --21:20 03/02/21 Trang Block R.N. 21:20 03/02/2021 IV Fluids NS via IV site #1 Discontinued: bag #1 infused. Total amount infused: 1000 mL. IV patency established. IV site checked: no pain, redness, or swelling. IV flushed thoroughly. --21:20 03/02/21 Trang Block R.N.DISPOSITION / DISCHARGE Departure time: 21:44 03/02/2021. Condition at departure: improved and stable. No learning barriers present. Discharge instructions provided and reviewed with the patient. Patient verbalized understanding. Written instructions provided in Serbian. The patient was discharged by the physician assistant manager retail. She was discharged home. She left ambulatory and via private vehicle. Spouse driving. --21:44 03/02/21 Jacquelyn Mays R.N. 21:43 03/02/21. BP: 136/87. HR: 79. RR: 19. O2 saturation: 100%. Temp: 98.1 F. Pain level now 03/31. --21:44 03/02/21 Jacquelyn Mays R.N. 21:44 03/02/2021 Site #1 removed upon discharge. Catheter intact. Manual pressure and bandage applied. --21:44 03/02/21 Jacquelyn Mays R.N.Locked/Released at 03/02/2021 21:44 by Jacquelyn Mays R.N. Name Value Range Interpretation Code Description Data Leslie rce(s) Supporting Document(s) ID Date Data Source [id number] 03/02/2021 08:09:00 PM EST [facility] 1 Clinical Report - Physicians/Mid Levels [facility] Emergency Department [address] [place] [address] Phone #: ext- [phone] 03/02/2021 20:02 Patient: ELIZABETH VALERA Sex: F : 1990 Age: 30y Time Seen: 20:10 03/02/2021. Arrived- By private vehicle. Historian- patient.HISTORY OF PRESENT ILLNESS Chief Complaint: HEADACHE. Dizziness, N/V. Is still present. This started yesterday. It was abrupt in onset and has been constant. It is described as "pain". Located in the occipital region. At its maximum, severity described as moderate. When seen in the E.D., severity described as moderate. The patient has had nausea and vomiting. No preceding symptoms, blurred vision, photophobia, numbness or weakness. (Seen last night for swollen lymph node, today reports dizziness, nausea w/vomiting and increased pain to back of head). Similar symptoms previously. Patient has had similar symptoms once. Recent medical care: The patient was seen recently at this facility in the emergency department.REVIEW OF SYSTEMSThe patient has had a hysterectomy. No fever, muscle aches, sinus pressure, ear pain or sore throat. Nocarbon monoxide exposure, tick bite, head injury, chest pain or difficulty breathing. No cough, abdominalpain, diarrhea, pain with urination or skin rash. No enlarged lymph nodes or back pain.SOCIAL HISTORYLight tobacco smoker (cigarette)- less than 1/2 a pack per day. Occasional alcohol use. No drug use.PHYSICAL EXAMVital Signs: 03/02/2021 20:04 BP: 143/89. MAP: 107. HR: 90. RR: 18. O2 saturation: 100%. Temp: 98.3F. Pain level now: 11/29. Have been reviewed as abnormal. Hypertensive. Oxygen saturation normal.Appearance: Alert. No acute distress.Head: Occiput: mild tenderness of the right side of the upper and lower middle occiput.Eyes: Pupils equal, round and reactive to light. Eyes normal inspection.ENT: Ears normal. Nose normal. Pharynx normal.Neck: Normal inspection. Neck supple.CVS: Normal heart rate and rhythm. Heart sounds normal.Respiratory: No respiratory distress. Breath sounds normal.Abdomen: Soft and nontender. No organomegaly.Back: Normal inspection.Skin: Skin warm and dry. Normal skin color. No rash. Normal skin turgor.Extremities: Extremities exhibit normal ROM. No lower extremity edema.Neuro: Oriented X 3. Alert. Mood/affect normal. Speech normal. Cranial nerves normal (as tested). 2 Clinical Report - Physicians/Mid [facility] Emergency Department [address] [place] [address] Phone #: ext- [phone] 03/02/2021 20:02 Patient: ELIZABETH VALERA Sex: F D OB: 1990 Age: 30y No cerebellar findings. No motor deficit. No sensory deficit. Reflexes normal.LABS, X-RAYS, AND EKGCT Head: No acute changes. No bony abnormalities, no hemorrhage, no intracranial mass, no midlineshift and no hydrocephalus. No atrophy. (scalp hematoma R occiput). Head CT performed withoutcontrast. The study was interpreted by the radiologist and contemporaneously by me. Interpretationtime: 21:36 03/02/2021.Laboratory Tests: Laboratory tests have been ordered, with results reviewed and considered in themedical decision making process. CBC w Diff: (RAMONA: 03/02/2021 20:29) ( MsgRcvd 03/02/2021 20:37) Final results Test Result Flag Units (Reference) CBC W/AUTOMATED DIFF COMPLETE BLOOD COUNT WBC 4.1 L 10/uL (4.2 - 11.0) RBC 4.71 10/uL (4.20 - 5.40) HEMOGLOBIN 12.8 g/dL (12.0 - 16.0) HEMATOCRIT 39.2 % (37.0 - 47.0) MCV 83.2 fL (81.0 - 101) MCH 27.2 pg (27.0 - 34.0) MCHC 32.7 g/dL (31.0 - 36.0) RDW 15.2 H % (11.5 - 14.5) PLATELETS 224 10/uL (150 - 450) MPV 9.6 fL (7.4 - 10.4) NEUT 46.6 % (37.0 - 80.0) LYMPH 41.2 H % (25.0 - 40.0) MONO 7.8 % (3.0 - 8.0) EOS 3.7 % (0.0 - 7.0) BASO 0.5 % (0.0 - 2.5) %IG 0.2 H % (0.0 - 0.0) %NRBC 0.0 % (0.0 - 0.0) #NEUT 1.90 L 10/uL (2.00 - 6.90) #LYMPH 1.68 10/uL (0.60 - 3.40) #MONO 0.32 10/uL (0.00 - 0.90) #EOS 0.15 10/uL (0.00 - 0.70) #BASO 0.02 10/uL (0.00 - 0.20) #IG 0.01 10/uL (0.00 - 0.10) #NRBC 0.00 10/uL (0.00 - 0.00) MANUAL DIFF NOT INDICATED RBC MORPH NOT INDICATED CMP: (RAMONA: 03/02/2021 20:29) ( MsgRcvd 03/02/2021 20:58) Final results Test Result Flag Units (Reference) COMPREHENSIVE METABOLIC PANEL COMPREH ENSIVE METABOLIC PANEL SODIUM 136 mEq/L (134 - 153) POTASSIUM 4.0 mEq/L (3.6 - 5.0) CHLORIDE 102 mEq/L (98 - 107) CO2 24 MEQ/L (22 - 30) GLUCOSE 97 MG/DL (70 - 99) BUN 8 MG/DL (7 - 21) CREATININE 0.7 MG/DL (0.7 - 1.5) BUN/CREAT 11 (8 - 27) TOTAL PROTEIN 9.0 H G/DL (6.3 - 8.2) ALBUMIN 4.1 G/DL (3.9 - 5.0) 3 Clinical Report - Physicians/Mid Levels [facility] Emergency Department [address] [place] [address] Phone #: ext- [phone] 03/02/2021 20:02 Patient: ELIZABETH VALERA Sex: F : 1990 Age: 30y GLOBULIN 4.9 H GM/DL (2.4 - 3.2) A/G RATIO 0.8 (0.8 - 2.0) CALCIUM 9.3 MG/DL (8.4 - 10.2) TOTAL BILI <0.7 MG/DL (0.2 - 1.3) ALKALINE PHOS 67 U/L (38 - 126) SGOT/AST 19 U/L (5 - 40) SGPT/ALT 18 U/L (7 - 56) ANION GAP 10.0 mmol/L (8.0 - 16.0) AGE 30 yrs NON-AA GFR >60 mL/min AFR AMER GFR >60 mL/min Male GFR Interprentation 20-49 yrs >60 mL/min Normal 50-59 yrs >56 mL/min Normal 60-69 yrs >49 mL/min Normal 70-79yrs >42 mL/min Normal 80 and above >35 mL/min Normal Female GFR Interpretation 20-39 yrs >60 mL/min Normal 40-49 yrs >58 mL/min Normal 50-59 yrs >51 mL/min Normal 60-69 yrs >45 mL/min Normal 70-79 yrs >39 mL/min Normal 80 and above >32 mL/min Normal Sed. Rate: (RAMONA: 03/02/2021 20:29) ( [facility] 03/02/2021 21:05) Final results Test Result Flag Units (Reference) SED RATE 22 H mm/hr (0 - 20) SED RATE REENTER 22 CRP: (RAMONA: 03/02/2021 20:29) ( [facility] 03/02/2021 20:58) Final results Test Result Flag Units (Reference) CRP-HS 1.28 MG/L (1.00 - 3.00) CDC/S HS-CRP CUT-OFF: RELATIVE RISK: <1.0 mg/L Low 1.0 - 3.0 mg/L Average >3.0 mg/L High Optimally, the average of HS-CRP results repeated two weeks apart should be used for risk assessment. Influenza Nasal A B: (RAMONA: 03/02/2021 20:28) ( [facility] 03/02/2021 21:02) Final results Test Result Flag Units (Reference) INFLUENZA A NEGATIVE (NORMAL: NEGAT INFLUENZA B NEGATIVE (NORMAL: NEGAT INFLUENZA A REENTER NEGATIVE (NORMAL: NEGAT INFLUENZA B REENTER NEGATIVE (NORMAL: NEGAT PROCEDURAL CONTROL VALID KIT LOT # _[id number] 03/02/21.JSK. KIT EXP DATE _01/23/22 03/02/21.JSK.The Influenza A utilizing an isothermal nucleic acid amplification technology for thequalitative detection of influenza A and B viral RNA.Negative results do not preclude influenza virus infection and should not beused as the sole basis for diagnosis, treatment or other patient managementdecisions..PROGRESS AND PROCEDURESCourse of Care: 21:37 Mar 02 2021. Evaluation after observation and results of tests back. (DiscussedCT findings and p[t remembers having hair done and had head in sink for 45 minutes and may be thesource of the hematoma. She is agreeable with dx and tx plan.). Patient counseled in person regarding the patient's stable condition, test results, diagnosis and need for follow-up. Patient agrees with plan of care. 21:38 Mar 02 2021. 4 Clinical Report - Physicians/Mid Levels [facility] Emergency Department [address] [place] [address] Phone #: ext- [phone] 03/02/2021 20:02 Patient: ELIZABETH VALERA Sex: F : 1990 Age: 30y Disposition: Discharged home in good and improved condition (:38 Mar 02 2021).CLINICAL IMPRESSION Single hematoma to the scalp.INSTRUCTIONS Warnings: Further evaluation is necessary. It is very important to follow up with a healthcare provider. GENERAL WARNINGS: Return or contact your physician immediately if your condition worsens or changes unexpectedly, if not improving as expected, or if other problems arise. SPECIFICALLY, return if you develop fever, difficulty thinking, visual disturbances, fainting or extreme fatigue. Your Current Medications: Your current home medications have been reviewed. CONTINUE TAKING THE FOLLOWING MEDICATIONS: Ibuprofen Oral : Tablet 800 mg, Last: 17:00, prn. Tylenol Oral : 650 mg, Last: 12:30, prn. Follow-up: Follow up with your doctor as needed. Reason for referral: evaluation and treatment. Summary of care provided to patient. Understanding of the discharge instructions verbalized by patient.(Electronically signed by ZOILA Armenta 03/02/2021 21:45) Name Value Range Interpretation Code Description Data Leslie rce(s) Supporting Document(s) ID Date Data Source [id number] 03/02/2021 09:04:00 PM EST [facility] Name Value Range Interpretation Code Description Data Leslie rce(s) Supporting Document(s) Erythrocyte sedimentation rate by Westergren method 22 mm/hr 0 - 20 H [facility] SED RATE REENTER 22 [facility] ID Date Data Source [id number] 03/02/2021 08:58:00 PM EST [facility] Name Value Range Interpretation Code Description Data Leslie rce(s) Supporting Document(s) C reactive protein [Mass/volume] in Serum or Plasma by High sensitivity method 1.28 MG/L 1.00 - 3.00 [facility] CDC/S HS-CRP CUT-OFF: RELATIVE RISK: <1.0 mg/L Low 1.0 - 3.0 mg/L Average >3.0 mg/L High Optimally, the average of HS-CRP results repeated two weeks apart should be used for risk assessment. ID Date Data Source [id number] 03/02/2021 08:58:00 PM [facility] Name Value Range Interpretation Code Description Data Leslie rce(s) Supporting Document(s) COMPREHENSIVE METABOLIC PANEL [facility] COMPREHENSIVE METABOLIC PANEL Sodium [Moles/volume] in Serum or Plasma 136 mEq/L 134 - 153 [facility] Potassium [Moles/volume] in Serum or Plasma 4.0 mEq/L 3.6 - 5.0 [facility] Chloride [Moles/volume] in Serum or Plasma 102 mEq/L 98 - 107 [facility] Carbon dioxide, total [Moles/volume] in Serum or Plasma 24 MEQ/L 22 - 30 [facility] Glucose [Mass/volume] in Serum or Plasma 97 MG/DL 70 - 99 [facility] BUN 8 MG/DL 7 - 21 [facility] Creat[facility] [Mass/volume] in Serum or Plasma 0.7 MG/DL 0.7 - 1.5 [facility] BUN/CREAT 11 8 - 27 [facility] Protein [Mass/volume] in Serum or Plasma 9.0 G/DL 6.3 - 8.2 H [facility] Albumin [Mass/volume] in Serum or Plasma 4.1 G/DL 3.9 - 5.0 [facility] Globulin [Mass/volume] in Serum by calculation 4.9 GM/DL 2.4 - 3.2 H [facility] A/G RATIO 0.8 0.8 - 2.0 [facility] Calcium [Mass/volume] in Serum or Plasma 9.3 MG/DL 8.4 - 10.2 [facility] Bilirubin.total [Mass/volume] in Serum or Plasma <0.7 MG/DL 0.2 - 1.3 [facility] Alkaline phosphatase [Enzymatic activity/volume] in Serum or Plasma 67 U/L 38 - 126 [facility] Aspartate aminotransferase [Enzymatic activity/volume] in Serum or Plasma 19 U/L 5 - 40 [facility] Alanine aminotransferase [Enzymatic activity/volume] in Seru m or Plasma 18 U/L 7 - 56 [facility] Anion gap 3 in Serum or Plasma 10.0 mmol/L 8.0 - 16.0 [facility] AGE [address] [facility] al NON-AA GFR >60 mL/min [facility] ital AFR AMER GFR >60 mL/min [facility] Male GFR In terprentation 20-49 yrs >60 mL/min Normal 50-59 yrs >56 mL/min Normal 60-69 yrs >49 mL/min Normal 70-79yrs >42 mL/min Normal 80 and above >35 mL/min Normal Female GFR Interpretation 20-39 yrs >60 mL/min Normal 40-49 yrs >58 mL/min Normal 50-59 yrs >51 mL/min Normal 60-69 yrs >45 mL/min Normal 70-79 yrs >39 mL/min Normal 80 and above >32 mL/min Normal ID Date Data Source [id number] 03/02/2021 08:36:00 PM EST [facility] Name Value Range Interpretation Code Description Data Leslie rce(s) Supporting Document(s) CBC W/AUTOMATED DIFF [facility] COMPLETE BLOOD COUNT Leukocytes [#/volume] in Blood by Automated count 4.1 10^3/uL 4.2 - 1 1.0 L [facility] Erythrocytes [#/volume] in Blood by Automated count 4.71 10^6/uL 4. 20 - 5.40 [facility] Hemoglobin [Mass/volume] in Blood 12.8 g/dL 12.0 - 16.0 [facility] Hematocrit [Volume Fraction] of Blood by Automated count 39.2 % 3 7.0 - 47.0 [facility] Erythrocyte mean corpuscular volume [Entitic volume] by Auto mated count 83.2 fL 81.0 - 101 [facility] Erythrocyte mean corpuscular hemoglobin [Entitic mass] by Automated count 27.2 pg 27.0 - 34.0 [facility] Erythrocyte mean corpuscular hemoglobin concentration [Mass/volume] by Automated count 32.7 g/dL 31.0 - 36.0 [facility] Erythrocyte distribution width [Ratio] by Automated count 15.2 % 11.5 - 14.5 H [facility] Platelets [#/volume] in Blood by Automated count 224 10^3/uL 150 - 45 0 [facility] Platelet mean volume [Entitic volume] in Blood by Automated count 9.6 fL 7.4 - 10.4 [facility] Neutrophils/100 leukocytes in Blood by Automated count 46.6 % 37. 0 - 80.0 [facility] Lymphocytes/100 leukocytes in Blood by Manual count 41.2 % 25.0 - 40.0 H [facility] Monocytes/100 leukocytes in Blood by Automated count 7.8 % 3.0 - 8.0 [facility] Eosinophils/100 leukocytes in Blood by Automated count 3.7 % 0.0 - 7.0 [facility] Basophils/100 leukocytes in Blood by Automated count 0.5 % 0.0 - 2.5 [facility] %IG 0.2 % 0.0 - 0.[address] [facility] al %NRBC 0.0 % 0.0 - 0.0 [facility] al Neutrophils [#/volume] in Blood by Automated count 1.90 10^3/uL 2.00 - 6.90 L [facility] Lymphocytes [#/volume] in Blood by Automated count 1.68 10^3/uL 0.60 - 3.40 [facility] Monocytes [#/volume] in Blood by Automated count 0.32 10^3/uL 0.00 - 0.90 [facility] Eosinophils [#/volume] in Blood by Automated count 0.15 10^3/uL 0.00 - 0.70 [facility] Basophils [#/volume] in Blood by Automated count 0.02 10^3/uL 0.00 - 0.20 [facility] #IG 0.01 10^3/uL 0.00 - 0.10 [facility] #NRBC 0.00 10^3/uL 0.00 - 0.00 [facility] MANUAL DIFF NOT INDICATED [facility] RBC MORPH NOT INDICATED [facility] ID Date Data Source [id number] 03/02/2021 09:01:00 PM [facility] Name Value Range Interpretation Code Description Data Leslie rce(s) Supporting Document(s) Influenza virus A Ag [Presence] in Nasopharynx by Immunoassa y NEGATIVE NORMAL: NEGATIVE [facility] Influenza virus B Ag [Presence] in Nasopharynx by Immunoassa y NEGATIVE NORMAL: NEGATIVE [facility] NEGATIVENEGATIVE PROCEDURAL CO NTROL VALID KIT LOT # _[id number] 03/02/21.JSK. KIT EXP DATE _01/23/22 03/02/21.JSK.The Influenza A & B assay is a rapid molecular in vitro diagnostic testutilizing an isothermal nucleic acid amplification technology for thequalitative detection of influenza A and B viral RNA.Negative results do not preclude influenza virus infection and should not beused as the sole basis for diagnosis, treatment or other patient managementdecisions. ID Date Data Source [id number] 03/01/2021 09:26:00 PM EST [facility] 1 OrderSheet [facility] Emergency Department [address] [place] [address] Phone #: ext- [phone] 03/01/2021 21:19 Patient: [...] Burks MDHYDROcodone-AP 21:58 03/01/2021 22:01 FRANK Mays (5-325mg)PO 1 Lucrecia Burks MD; Jacquelyn Marshalltab (HIGH ALERTMEDICATION) Reason for ordering with alerts: Benefits outweigh risks -- 21:58 03/01/2021 Lucrecia Burks MDGENERAL ORDERSOrder Description Priority Entered Acknowledged Initialed[Electronically signed by Jacquelyn Mays R.N. (22:03/01/2021)][Electronically signed by Lucrecia Burks MD (07:22 03/02/2021)][Electronically locked by Jacquelyn Mays R.N. (22:21 03/01/2021)] Name Value Range Interpretation Code Description Data Leslie rce(s) Supporting Document(s) ID Date Data Source [id number] 03/01/2021 09:26:00 PM EST [facility] 1 Medication Reconciliation Report [facility] Emergency Department [address] [place] [address] Phone #: ext- [phone] 03/01/2021 21:19 Patient: [...] rce(s) Supporting Document(s) ID Date Data Source [id number] 03/01/2021 09:26:00 PM [place] [address] Medication Administration Record [facility] Emergency Department [address] [place] [address] Phone #: ext- [phone] 03/01/2021 21:19 Patient: ELIZABETH VALERA Sex: F : 1990 Age: 30yWeight: 97.5 kgHeight/Length: 72 inBMI: 29.2ALLERGIES: Zofran Date/Time Medication Administered Medication OrderedGiven METOCLOPRAMIDE [PO] Metoclopramide PO 10 mg22:03/01/2021 Dose: 10 mg Jacquelyn Sierra R.N.Given HYDROCODONE-APAP (5-325MG) [PO] HYDROcodone- APAP22:03/01/2021 (ACETAMINOPHEN-HYDROCODONE) (5-325mg)PO 1 tab (HIGH Jacquelyn Last R.NAva Dose: 1 tab PO MEDICATION) Name Value Range Interpretation Code Description Data Leslie rce(s) Supporting Document(s) ID Date Data Source [id number] 03/01/2021 09:26:00 PM [facility] 1 General Instructions [facility] Emergency Department [address] [place] [address] Phone #: ext- [phone] 03/01/2021 21:19 Patient: [...] rce(s) Supporting Document(s) ID Date Data Source [id number] 03/01/2021 09:26:00 PM EST [facility] 1 Clinical Report - Nurses [facility] Emergency Department [address] [place] [address] Phone #: ext- [phone] 03/01/2021 21:19 Patient: [...] with tylenol. 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 SIRS criteria negative: heart [...] Mays R.N. 2 Clinical Report - Nurses [facility] Emergency Department [address] [place] [address] Phone #: ext- [phone] 03/01/2021 21:19 Patient: ELIZABETH VALERA Sex: F : 1990 Age: 30y History [...] assessment completed. No skin integrity risk identified. --21:03/01/21 Jacquelyn Mays R.N. Interventions Identification and allergy band on patient. To treatment room. --:03/01/21 Jacquelyn Mays R.N.PHYSICAL ASSESSMENTAmbulatory to room.GENERAL / [...] dry. --21:55 03/01/21 Jacquelyn Mays R.N.NURSING PROGRESS NOTES22:01 03/01/2021 Metoclopramide PO 10 mg given. Allergies verified and confirmed 5 rights. Information 3 Clinical Report - Nurses [facility] Emergency Department [address] [place] [address] Phone #: ext- [phone] 03/01/2021 21:19 Patient: [...] Patient verbalized understanding. Written instructions provided in Serbian. The patient was discharged by the physician. She was discharged home and accompanied by spouse. She left ambulatory and via private vehicle. Spouse driving. --22:03/01/21 Jacquelyn Mays R.N. 22:20 03/01/21. BP: 128/75. MAP: 92. HR: 85. RR: 16. O2 saturation: 100%. Temp: 97.9 F. Pain level now: 06/29. --22:21 03/01/21 Jacquelyn Mays R.N. Departure time: 22:21 03/01/2021. --22:03/01/21 Jacquelyn Mays R.N.Locked/Released at 03/01/2021 22:21 by Jacquelyn Mays R.N. Name Value Range Interpretation Code Description Data Leslie rce(s) Supporting Document(s) ID Date Data Source [id number] 03/01/2021 09:26:00 PM [facility] 1 Clinical Report - Physicians/Mid Levels [facility] Emergency Department [address] [place] [address] Phone #: ext- [phone] 03/01/2021 21:19 Patient: [...] Mean 2 Clinical Report - Physicians/Mid Levels [facility] Emergency Department [address] [place] [address] Phone #: ext- [phone] 03/01/2021 21:19 Patient: ELIZABETH VALERA Sex: F [...] medication. 3 Clinical Report - Physicians/Mid Levels [facility] Emergency Department [address] [place] [address] Phone #: ext- [phone] 03/01/2021 21:19 Patient: [...] rce(s) Supporting Document(s) ID Date Data Source [id number] 02/04/2021 09:30:00 AM EST [facility] Name Value Range Interpretation Code Description Data Leslie rce(s) Supporting Document(s) SARS-CoV-2 RNA Resp Ql KAMILA+probe NOT DETECTED [facility] This lab was ordered by ABY moon and reported by ABY Grossman. ID Date Data Source [id number] 12/25/2020 02:25:00 PM EDT [facility] DATE OF EXAMINATION: 12/25/2020 13:59 EDT HISTORY: [...] rce(s) Supporting Document(s) ID Date Data Source [id number] 11/11/2020 01:00:00 PM EDT [facility] Name Value Range Interpretation Code Description Data Leslie rce(s) Supporting Document(s) SARS-CoV-2 RNA Resp Ql KAMILA+probe NOT DETECTED [facility] This lab was ordered by ABY moon and reported by ABY Grossman. ID Date Data Source [id number] 07/18/2020 10:55:00 AM EDT [facility] Name Value Range Interpretation Code Description Data Leslie rce(s) Supporting Document(s) COVID-19 RT-PCR NASAL SWAB Not Detected Not Detected [facility] A not detected (negative) test result fo [...] developed and its performance characteristics determined by [employer] and verified at [facility]. It has not been cleared or approved by the U.S. Food and Drug Administration for diagnostic use. This test has been authorized by FDA under an EUA for use by authorized laboratories. Results should be used in conjunction with clinical findings, and should not form the sole basis for a diagnosis or treatment decision. Methods: SARS-CoV-2 Multiplex RT-PCR Assay ID Date Data Source [id number] 07/16/2020 03:45:00 PM EDT [facility] Name Value Range Interpretation Code Description Data Leslie rce(s) Supporting Document(s) SARS-CoV-2 (COVID-19) N gene [Presence] in Respiratory specimen by KAMILA with probe detection NEGATIVE [facility] This lab was ordered by Ngoc Dugan and reported by [facility] [employer]. ID Date Data Source [id number] 05/25/2020 10:24:00 PM EST [facility] Name Value Range Interpretation Code Description Data Leslie rce(s) Supporting Document(s) SARS coronavirus 2 RNA Not Detected [facility] This lab was ordered by [facility] and reported by [facility]. ID Date Data Source [id number] 05/25/2020 08:59:00 PM EST [facility] Name Value Range Interpretation Code Description Data Leslie rce(s) Supporting Document(s) SARS COVID ANTIGEN NEGATIVE [facility] This lab was ordered by ANIA galicia nd reported by [facility]. Procedure Social History Code Duration Value Status Description Data Source(s ) Smoking 12/25/2020 12:00:00 AM EDT Former Smoker completed Former Smoker eCW1 ([facility]) Vital Signs ID Date Data Source UNK Name Value Range Interpretation Code Description Data Source(s) Body height 70 [in_i] 70 [in_i] eCW1 ([facility]) Body weight 200 [lb_av] 200 [lb_av] eCW1 ([facility]) Body mass index (BMI) [Ratio] 28.69 kg/m2 28.69 kg/m2 eCW1 ([facility]) Body temperature 97.9 [degF] 97.9 [degF] eCW1 ( [facility]) Heart rate 90 /min 90 /min eCW1 ([facility]) Respiratory rate 17 /min 17 /min eCW1 ([facility]) Oxygen saturation in Arterial blood by Pulse oximetry 99 % 99 % eCW1 ([facility]) Systolic blood pressure 128 mm[Hg] 128 mm[Hg] M EDENT ([facility]) Diastolic blood pressure 79 mm[Hg] 79 mm[Hg] MEDENT ([facility]) Heart rate 93 /min 93 /min MEDENT ([facility]) Body weight 196.00 [lb_av] 196.00 [lb_av] MEDEN T ([facility]) Body weight 88.906 kg 88.906 kg [facility] ([facility]) Body height 72 [in_i] 72 [in_i] [facility] ([facility]) 6'0" Body mass index (BMI) [Ratio] 26.6 kg/m2 26.6 k g/m2 [facility] ([facility]) Body surface area Derived from formula 2.11 m2 2.11 m2 [facility] ([facility]) ID Date Data Source [id number] 01/18/2020 02:34:38 PM EDT [facility] Name Value Range Interpretation Code Description Data Source(s) WEIGHT RECORDED [address] [facility] Height 72 Inches 072 Inches [facility]
== END 2021-03-03 02:09 | disposition left against medical advice (07) ==
LOC: M ED 17:52
DX: Z53.21 Procedure and treatment not carried out due to patient leaving prior to being seen by health care provider (principal)

== ENCOUNTER → 2021-06-02 | Outpatient (REF) | LOC: M LAB 09:05 | PROVIDERS: ATTEND Nurse Practitioner Adult Health | DX: Z02.1 Encounter for pre-employment examination (principal) ==

== ENCOUNTER → 2021-06-12 | Outpatient (REF) ==
[2021-06-12 14:51] LABS: RSV AMPLIFICATION NEGATIVE (NEGATIVE)
== END ==
LOC: M EMP 14:07
PROVIDERS: ATTEND Family Medicine
DX: Z20.822 Contact with and (suspected) exposure to COVID-19 (principal)

== ENCOUNTER → 2021-06-16 | Outpatient (REF) | payer OTHER ==
[~2021-06-16] MED LIST changes: +AMOX875T2 PO
== END ==
LOC: M LAB REF 12:02
PROVIDERS: ATTEND Physician Assistant Medical
DX: R50.9 Fever, unspecified (principal); R53.83 Other fatigue

== ENCOUNTER 2021-07-01 04:54 | Emergency (ER) | payer OTHER ==
[~2021-07-01] VITALS: Ht 180.3 cm; Wt 96.0 kg
[~2021-07-01 04:54] MED LIST changes: -AMOX875T2 PO
[2021-07-01 07:49] LABS: BASO % 0.4 % (0.0-1.0); EOS % 0.9 % (0.0-3.0); HEMATOCRIT 37.6 % (36.0-47.0); HEMOGLOBIN 12.3 g/dl (12.0-15.5); LYMPH # 0.9 10^3/uL (1.5-5.0); LYMPH % 19.2 % (24.0-44.0); MEAN CORPUSCULAR HEMOGLOBIN 28.7 pg (27.0-33.0); MEAN CORPUSCULAR HGB CONC 32.7 g/dl (32.0-36.5); MEAN CORPUSCULAR VOLUME 87.6 fl (80.0-96.0); MONO # 0.3 10^3/uL (0.0-0.8); MONO % 5.4 % (2.0-8.0); NEUTROPHILS # 3.4 10^3/uL (1.5-8.5); NEUTROPHILS % 73.7 % (36.0-66.0); PLATELET COUNT, AUTOMATED 215 10^3/uL (150-450); RED BLOOD COUNT 4.29 10^6/uL (4.00-5.40); WHITE BLOOD COUNT 4.6 10^3/uL (4.0-10.0)
[2021-07-01 08:15] LABS: BLOOD UREA NITROGEN 6 MG/DL (7-18); C REACTIVE PROTEIN QUANTITATIV 0.89 MG/DL (0.00-0.30); CALCIUM LEVEL 8.8 MG/DL (8.5-10.1); CARBON DIOXIDE LEVEL 28 MEQ/L (21-32); CHLORIDE LEVEL 109 MEQ/L (98-107); CREATININE FOR GFR 0.74 MG/DL (0.55-1.30); GLOMERULAR FILTRATION RATE > 60.0 (>60); GLUCOSE, FASTING 87 MG/DL (70-100); POTASSIUM SERUM 4.2 MEQ/L (3.5-5.1); SODIUM LEVEL 140 MEQ/L (136-145)
[2021-07-01 08:35] LABS: ERYTHROCYTE SEDIMENTATION RATE 21 mm/hr (0-20)
[2021-07-01] MEDS ORDERED: NS 1,000 ML IV ONE (09:20)
[2021-07-01] MEDS ORDERED: KETOROLAC 30 MG/ML 1ML VIAL IV ONE (09:20)
[2021-07-01] MEDS ORDERED: ISOVUE-370 76% 100ML VIAL As Ordered ONE (09:40)
[2021-07-01] MEDS ORDERED: AMPICILLIN SOD/SULBACTAM SOD 3 GM in D5W MINI-BAG PLUS 100 ML IV ONE (11:15)
[2021-07-01] MEDS ORDERED: dexameTHASONE 20MG/5ML VIAL (J1100 PER 1MG) IV ONE (11:15)
[2021-07-01] MEDS ORDERED: AMOX875T2 PO (11:19)
[2021-07-01 13:06] VITALS: BP 116/71
== END 2021-07-01 13:24 | disposition home or self-care (01) ==
LOC: M ED 04:54
DX: K04.7 Periapical abscess without sinus (principal); L03.211 Cellulitis of face; R59.9 Enlarged lymph nodes, unspecified; Z88.8 Allergy status to other drugs, medicaments and biological substances
CPT/HCPCS: 70487; 80048; 83605; 85025; 85652; 86140; 96361; 96365; 96375; 99283; J0295; J1100; J1885; Q9967